=== PATIENT | female | born 1965 ===

== ENCOUNTER → 2020-08-05 12:07 | Outpatient (BNVA) | payer OTHER, SELFPAY | PROVIDERS: PCP Internal Medicine; Visit Provider Physician Assistant | DX: E66.01 Morbid (severe) obesity due to excess calories (principal); R06.02 Shortness of breath | CPT/HCPCS: 99212 ==

== ENCOUNTER → 2020-08-17 08:19 | Outpatient (BNVA) | payer OTHER, SELFPAY | PROVIDERS: PCP Internal Medicine; Visit Provider Physician Assistant ==

== ENCOUNTER → 2020-08-31 14:15 | Outpatient (BNVA) | payer OTHER, SELFPAY | PROVIDERS: PCP Internal Medicine; Visit Provider Surgery | DX: E66.01 Morbid (severe) obesity due to excess calories (principal) | CPT/HCPCS: 99212 ==

== ENCOUNTER → 2020-09-14 09:19 | Outpatient (BNVA) | payer OTHER, SELFPAY | PROVIDERS: PCP Internal Medicine; Visit Provider Dietitian, Registered ==

== ENCOUNTER → 2020-09-20 11:42 | Outpatient (BNVA) | payer OTHER, SELFPAY | PROVIDERS: Visit Provider Surgery | DX: E66.01 Morbid (severe) obesity due to excess calories (principal); Z68.42 Body mass index [BMI] 45.0-49.9, adult | CPT/HCPCS: 99212 ==

== ENCOUNTER → 2020-10-07 08:10 | Outpatient (BNVA) | payer OTHER, MEDICAID, SELFPAY | PROVIDERS: PCP Internal Medicine; Visit Provider Dietitian, Registered | DX: E66.01 Morbid (severe) obesity due to excess calories (principal) | CPT/HCPCS: 97803 ==

== ENCOUNTER → 2020-11-01 08:17 | Outpatient (BNVA) | payer OTHER, SELFPAY | PROVIDERS: PCP Internal Medicine; Visit Provider Dietitian, Registered ==

== ENCOUNTER → 2020-11-09 08:13 | Outpatient (BNVA) | payer OTHER, SELFPAY | PROVIDERS: PCP Internal Medicine; Visit Provider Dietitian, Registered ==

== ENCOUNTER 2020-11-12 08:05 | Outpatient (REF) | payer OTHER, SELFPAY ==
--- NOTE | ~2020-11-12 | XR_ITS ---
EXAMINATION: XR CHEST CLINICAL INFORMATION: Shortness of breath COMPARISON: Previous chest x-ray December 2018 TECHNIQUE: 2 views of the chest were obtained. FINDINGS: The cardiac and mediastinal contours are normal. The lungs are clear. There is no pleural effusion or pneumothorax. There are degenerative changes of the spine. XR/XR chest 2V IMPRESSION: No evidence for acute disease in the chest.
--- NOTE | 2020-11-12 08:15 | ECG_ITS ---
Test Reason : SOB Blood Pressure : / mmHG Vent. Rate : 071 BPM Atrial Rate : 071 BPM P-R Int : 136 ms QRS Dur : 076 ms QT Int : 414 ms P-R-T Axes : 029 -01 016 degrees QTc Int : 449 ms Normal sinus rhythm Normal ECG When compared with ECG of 16-JAN-2019 11:44, No significant change was found Referred By: Marisol Duron Electronically Signed By:JASWINDER LOPEZ MD
[2020-11-12 08:55] LABS: MANUAL DIFF FLAG NO
[2020-11-12 08:56] LABS: Basophils Percent Auto 0.4 % (0-2); Eosinophils Absolute Auto 0.2 X10*3/uL (0.0-0.4); Eosinophils Percent Auto 2.7 % (0-4); Hematocrit 41.1 % (37-47); Hemoglobin 13.7 g/dl (12.0-16.0); Imm Gran Abs Auto 0.03 X10*3/uL (0.00-0.03); Imm Gran Pct Auto 0.4 % (0.0-0.4); Lymphocytes Absolute Auto 2.5 X10*3/uL (1.2-4.9); Lymphocytes Percent Auto 33.7 % (20-40); Mean Corpuscular HGB Conc 33.3 g/dl (31.0-35.0); Mean Corpuscular Hemoglobin 26.5 pg (27.0-33.0); Mean Corpuscular Volume 79.5 fL (80-98); Mean Platelet Volume 11.6 fL (9.4-12.3); Monocytes Absolute Auto 0.5 X10*3/uL (0.1-1.2); Monocytes Percent Auto 6.5 % (2-11); Neutrophils Absolute Auto 4.1 X10*3/uL (2.0-8.3); Neutrophils Percent Auto 56.3 % (45-73); Platelet Count 174 X10*3/uL (160-400); Red Blood Count 5.17 X10*6/uL (4.20-5.50); White Blood Count 7.3 X10*3/uL (4.8-10.8)
[2020-11-12 09:22] LABS: Alanine Aminotransferase 39 U/L (0-31); Albumin Level 4.3 g/dL (3.5-5.0); Alkaline Phosphatase 77 U/L (39-117); Anion Gap 14 (12-20); Aspartate Amino Transferase 29 U/L (5-31); Bilirubin Total 0.5 mg/dL (0.0-1.0); Blood Urea Nitrogen 19 mg/dL (9-16); Calcium 9.5 mg/dL (8.4-10.2); Carbon Dioxide 26 mmol/L (22-29); Chloride 102 mmol/L (96-108); Cholesterol 167 mg/dL; Estimated Average Glucose 212 mg/dL; Estimated Glomerular Filt Rate > 60; Glucose Fasting 238 mg/dL (60-99); HDL Cholesterol 55 mg/dL; Iron 61 mcg/dL (30-160); LDL Cholesterol Calculated 87 mg/dl; Percent Iron Saturation 16 % (15-50); Potassium 4.1 mmol/L (3.3-5.1); Sodium 138 mmol/L (135-145); Total Iron Binding Capacity 381 mcg/dL (228-428); Total Protein 7.2 g/dL (6.5-8.0); Triglycerides 127 mg/dL; Unsaturated Iron Binding 320 ug/dL
[2020-11-12 09:44] LABS: Ferritin 20 ng/mL (10-250); TSH reflex Free T4 0.73 uIU/mL (0.32-4.0); Vitamin D 25-OH Total 29.1 ng/mL (>30)
[2020-11-12 10:37] LABS: Folate > 20.0 ng/mL (> or = 4.0); Vitamin B12 691 pg/mL (200-900)
[2020-11-15 14:52] LABS: Insulin Level Total 29.4 uIU/mL
[2020-11-15 16:51] LABS: Zinc 117 mcg/dL (60-130)
[2020-11-16 10:27] LABS: Calcium (PTHI) 9.4 mg/dL (8.6-10.4); PTHI 44 pg/mL (14-64)
[2020-11-17 14:22] LABS: Vitamin A 46 mcg/dL (38-98)
[2020-11-17 15:56] LABS: Vitamin B1 29 nmol/L (8-30)
== END 2020-11-12 08:06 | disposition home or self-care (01) ==
LOC: HO.LAB 08:05
PROVIDERS: PCP Internal Medicine; Visit Provider Physician Assistant
DX: R06.02 Shortness of breath (principal); E66.01 Morbid (severe) obesity due to excess calories
CPT/HCPCS: 36415; 71046; 80053; 80061; 82306; 82607; 82728; 82746; 83036; 83525; 83540; 83970; 84425; 84443; 84590; 84630; 85025; 86140; 93005

== ENCOUNTER → 2020-12-14 08:36 | Outpatient (BNVA) | payer OTHER, SELFPAY | PROVIDERS: PCP Internal Medicine; Visit Provider Dietitian, Registered ==

== ENCOUNTER → 2020-12-15 08:14 | Outpatient (BNVA) | payer OTHER, SELFPAY | PROVIDERS: PCP Internal Medicine; Visit Provider Dietitian, Registered | DX: E66.01 Morbid (severe) obesity due to excess calories (principal) | CPT/HCPCS: 97803 ==

== ENCOUNTER → 2021-03-04 09:41 | Outpatient (BNVA) | payer OTHER, SELFPAY | PROVIDERS: PCP Internal Medicine; Visit Provider Surgery ==

== ENCOUNTER → 2021-03-25 09:31 | Outpatient (BNVA) | payer OTHER, SELFPAY | PROVIDERS: PCP Internal Medicine; Referring Provider Internal Medicine; Visit Provider Surgery ==

== ENCOUNTER 2021-04-07 10:23 | Day surgery (SDC) | payer OTHER, SELFPAY ==
--- NOTE | 2021-04-06 11:58 | HO.ANESPROP2 ---
Documented by User: Magalis Hilton NP 04/06/21 11:59 HPI - Anesthesia Eval Consult details Narrative: 55yo F for Upper Endoscopy PMFSH Active Problems Active Problems: All Active Problems (Updated 09/20/20 @ 12:33 by Lisa Arce MD) BMI 45.0-49.9, adult (Acute) Adjustment disorder, unspecified (Acute) BMI greater than 40 (Acute) Morbid obesity (Acute) Past Medical History Medical History (Updated 04/07/21 @ 12:47 by Estefani Angela MD) Asthma BMI greater than 40 COVID-19 GERD (gastroesophageal reflux disease) Hypercholesterolemia Morbid obesity LIANA on CPAP Restless leg syndrome Type 2 diabetes mellitus Family History Family History Father No problems noted. Mother Diabetes mellitus Daughter No problems noted. Daughter No problems noted. Daughter ADHD Surgical History Surgical History H/O carpal tunnel repair H/O hand surgery H/O tubal ligation Hx of colonoscopy Social History Social History Alcohol intake: never Patient Tobacco Use Status: Former Tobacco user Quit Date: quit 35 years Use of substances other than those prescribed or required for medical reasons: No Are you DNR?: No Advance Directives: No Advance Directives Information Provided: Yes Patient : No Meds Allergies Allergy/AdvReac Type Severity Reaction Status Date / Time No Known Allergies Allergy Verified 03/25/21 09:51 Home Medications Medication Instructions Recorded Confirmed Last Taken Type ammonium lactate 12 % topical cream appl TOPICAL DAILY 08/05/20 03/25/21 Unknown History atorvastatin 20 mg tablet 20 mg PO BEDTIME 08/05/20 03/25/21 Unknown History blood sugar diagnostic #10 ea 08/05/20 03/25/21 Unknown History cholecalciferol (vitamin D3) 25 25 mcg PO DAILY 08/05/20 03/25/21 Unknown History mcg (1,000 unit) tablet docusate sodium 100 mg capsule 100 mg PO BID 08/05/20 03/25/21 Unknown History erythromycin 5 mg/gram (0.5 %) eye OPHTHALMIC (EYE) 08/05/20 03/25/21 Unknown History ointment flash glucose sensor #1 ea 08/05/20 03/25/21 Unknown History fluticasone 113 mcg-salmeterol 14 1 inh INHALATION BID 08/05/20 03/25/21 Unknown History mcg/actuation breath activated powdr ketotifen fumarate 0.025 % (0.035 1 drp OPHTHALMIC (EYE) Q12H 08/05/20 03/25/21 Unknown History %) eye drops levocetirizine 5 mg tablet 5 mg PO DAILY 08/05/20 03/25/21 Unknown History losartan 25 mg tablet 25 mg PO DAILY 08/05/20 03/25/21 Unknown History metformin 1,000 mg tablet 1,000 mg PO BID 08/05/20 03/25/21 Unknown History mometasone 50 mcg/actuation nasal 2 spray INTRANASAL DAILY PRN 08/05/20 03/25/21 Unknown History spray multivitamin 1 tab PO DAILY 08/05/20 03/25/21 Unknown History omeprazole 20 mg capsule,delayed 20 mg PO DAILY 08/05/20 03/25/21 Unknown History release pramipexole 0.125 mg tablet 0.125 mg PO DAILY 08/05/20 03/25/21 Unknown History sennosides 8.6 mg tablet 8.6 mg PO BEDTIME PRN 08/05/20 03/25/21 Unknown History dulaglutide 1.5 mg/0.5 mL 1.5 mg SUBCUT QWEEK 03/04/21 03/25/21 Unknown History subcutaneous pen injector (Trulicity) Exam Exam Date and Time: April 06, 2021 1158 Pertinent Lab Results Pertinent Lab Results: Laboratory Tests 11/12/20 11/12/20 08:20 08:20 WBC 7.3 Hgb 13.7 Hct 41.1 Plt Count 174 Sodium 138 Potassium 4.1 Chloride 102 Carbon Dioxide 26 BUN 19 H Creatinine 0.83 Narrative Narrative: EKG 10/2020 Vent. Rate : 071 BPM ? ? Atrial Rate : 071 BPM ?? P-R Int : 136 ms? QRS Dur : 076 ms ? ? QT Int : 414 ms ? ? ? P-R-T Axes : 029 -01 016 degrees ?? QTc Int : 449 ms ? Normal sinus rhythm Normal ECG When compared with ECG of 16-JAN-2019 11:44, No significant change was found Assessment and Plan Assessment Anesthesia Assessment: Chart Reviewed Documented by User: Estefani Angela MD 04/07/21 12:51 PMFSH Past Medical History Medical History (Updated 04/07/21 @ 12:47 by Estefani Angela MD) Asthma BMI greater than 40 COVID-19 GERD (gastroesophageal reflux disease) Hypercholesterolemia Morbid obesity LIANA on CPAP Restless leg syndrome Type 2 diabetes mellitus Family History Family History Father No problems noted. Mother Diabetes mellitus Daughter No problems noted. Daughter No problems noted. Daughter ADHD Family history of problems with anesthesia: No Surgical History Surgical History H/O carpal tunnel repair H/O hand surgery H/O tubal ligation Hx of colonoscopy History of Problems with Anesthesia: No Social History Social History Alcohol intake: never Patient Tobacco Use Status: Former Tobacco user Quit Date: quit 35 years Use of substances other than those prescribed or required for medical reasons: No Are you DNR?: No Advance Directives: No Advance Directives Information Provided: Yes Patient : No Meds Allergies Allergy/AdvReac Type Severity Reaction Status Date / Time No Known Allergies Allergy Verified 03/25/21 09:51 Home Medications Medication Instructions Recorded Confirmed Last Taken Type ammonium lactate 12 % topical cream appl TOPICAL DAILY 08/05/20 03/25/21 Unknown History atorvastatin 20 mg tablet 20 mg PO BEDTIME 08/05/20 03/25/21 Unknown History blood sugar diagnostic #10 ea 08/05/20 03/25/21 Unknown History cholecalciferol (vitamin D3) 25 25 mcg PO DAILY 08/05/20 03/25/21 Unknown History mcg (1,000 unit) tablet docusate sodium 100 mg capsule 100 mg PO BID 08/05/20 03/25/21 Unknown History erythromycin 5 mg/gram (0.5 %) eye OPHTHALMIC (EYE) 08/05/20 03/25/21 Unknown History ointment flash glucose sensor #1 ea 08/05/20 03/25/21 Unknown History fluticasone 113 mcg-salmeterol 14 1 inh INHALATION BID 08/05/20 03/25/21 Unknown History mcg/actuation breath activated powdr ketotifen fumarate 0.025 % (0.035 1 drp OPHTHALMIC (EYE) Q12H 08/05/20 03/25/21 Unknown History %) eye drops levocetirizine 5 mg tablet 5 mg PO DAILY 08/05/20 03/25/21 Unknown History losartan 25 mg tablet 25 mg PO DAILY 08/05/20 03/25/21 Unknown History metformin 1,000 mg tablet 1,000 mg PO BID 08/05/20 03/25/21 Unknown History mometasone 50 mcg/actuation nasal 2 spray INTRANASAL DAILY PRN 08/05/20 03/25/21 Unknown History spray multivitamin 1 tab PO DAILY 08/05/20 03/25/21 Unknown History omeprazole 20 mg capsule,delayed 20 mg PO DAILY 08/05/20 03/25/21 Unknown History release pramipexole 0.125 mg tablet 0.125 mg PO DAILY 08/05/20 03/25/21 Unknown History sennosides 8.6 mg tablet 8.6 mg PO BEDTIME PRN 08/05/20 03/25/21 Unknown History dulaglutide 1.5 mg/0.5 mL 1.5 mg SUBCUT QWEEK 03/04/21 03/25/21 Unknown History subcutaneous pen injector (Trulicity) Exam Height,Weight and Vital Signs: Height 5 ft 4 in Weight 122.47 kg Vital Signs Temp Pulse Resp BP Pulse Ox 04/07/21 11:03 97.3 F 84 18 137/79 97 Pertinent Lab Results Pertinent Lab Results: Laboratory Tests 11/12/20 11/12/20 08:20 08:20 WBC 7.3 Hgb 13.7 Hct 41.1 Plt Count 174 Sodium 138 Potassium 4.1 Chloride 102 Carbon Dioxide 26 BUN 19 H Creatinine 0.83 Laboratory Results - last 24 hr 04/07/21 04/07/21 10:35 10:40 POC Glucose 118 H COVID-19 (PATEL) Negative COVID-19 Clin Com See Note Narrative Narrative: EKG 10/2020 Vent. Rate : 071 BPM ? ? Atrial Rate : 071 BPM ?? P-R Int : 136 ms? QRS Dur : 076 ms ? ? QT Int : 414 ms ? ? ? P-R-T Axes : 029 -01 016 degrees ?? QTc Int : 449 ms ? Normal sinus rhythml Normal ECG When compared with ECG of 16-JAN-2019 11:44, No significant change was found Airway Mallampati Class: I TM Dist: >3cm Neck ROM: Full Heart: RRR Lungs: CTAB Assessment and Plan Assessment Anesthesia Assessment: Anesthesia Plan Discussed Final Anesthetic Review Family History of Problems with Anesthesia: No History of Problems with Anesthesia: No NPO: Yes ASA Class: III Final Preanesthetic Review: No Changes in Pt Med Stat, Meds/Allgs Chart Reviewed, Consent Obtained/Reviewed and Anes Risks/Benef Reviewed Patient Risk: Intermediate Procedure Risk: Low Assessment/Block/Sedation in SS: Assess/Block/Sedation-SS Anesthetic Plan Anesthetic Plan: MAC: Disposition: Standard PACU
--- NOTE | 2021-04-07 00:15 | MHC.SHP ---
Pre-Procedural Eval Section A Date of Service: 04/07/21 The patient is an INPATIENT: No The History & Physical has been completed within 30 days and I have reviewed it.: No Section B Chief Complaint: GERD Relevant Family History (Specify if Yes): No Relevant Social History: None Present Medications: None Medical History: No relevant PMH History of Previous Operations: No relevant previous surgery Allergies: Allergies Allergy/AdvReac Type Severity Reaction Status Date / Time No Known Allergies Allergy Verified 03/25/21 09:51 Review of Systems Sugical H&P ROS: Negative: Constitution, Cardiovascular, Respiratory, Neurological, Psychiatric, Hem-Onc, Allergic/Immunologic, Gastrointestinal, Genitourinary, Musculoskeletal, Integumentary, Endocrine and Eyes/Ears/Nose/Throat Exam Surgical H&P Exam: Normal: HEENT, Normal: Heart, Normal: Lungs, Normal: Extremities, Normal: Abdomen, Normal: Skin and Normal: Neurological Plan Diagnosis/Plan: Unchanged (Plan for endoscopy to rule out H pylori. Patient cannot tolerate 2 week discontinuation of PPI treatment. Risks and complications were discussed) I have reviewed the history and physical and performed a pertinent physical examination on my patient. No changes have occurred unless specified.
[2021-04-07 11:01] LABS: COVID-19 Test Negative (Negative)
[2021-04-07 11:03] VITALS: BP 137/79; PULSE 84; RESP 18; TEMP 36.3; O2SAT 97; BMI 46.3
[2021-04-07] MEDS: Lactated Ringers 1,000 ML 100 ML IVCONT (11:12)
[2021-04-07 12:34] LABS: Glucose, Whole Blood 118 mg/dL (60-115)
[2021-04-07 14:10] VITALS: BP 117/70; PULSE 90; RESP 14; TEMP 36.1; O2SAT 93
[2021-04-07 14:26] VITALS: BP 122/72; PULSE 85; RESP 16; O2SAT 93
[2021-04-07 14:35] VITALS: BP 115/72; PULSE 77; RESP 16; TEMP 36.1; O2SAT 97
--- NOTE | 2021-04-07 18:41 | PM.OP ---
Brief Operative Note Date of Service: 04/07/21 Pre-op diagnosis: GERD Post-op diagnosis: same Procedure: PROCEDURE DATE: 11/11/2020 PREOPERATIVE DIAGNOSIS: GERD and obesity POSTOPERATIVE DIAGNOSIS: ?Same as above. 1) small hiatal hernia, 2) esophagitis II PROCEDURE: [id number]-vavqbq-ukhoitpnweqn with biopsies Surgeon: ?Pal Galindo M.D.. Ph.D. Chocolate Finisher Operator: None ? Anesthesia: IV sedation Estimated blood loss: ?Minimal FINDINGS AND PROCEDURE: ? OPERATIVE INDICATIONS: ?The patient is a 55 year old female known to me who is evaluated for morbid obesity and bariatric surgery. She had severe GERD and was not able to discontinue the Omeprazole for 2 weeks to perform the H. pylori breath test. She presents for an endoscopy and a biopsy. Risks and complications of the surgery were discussed with the patient in advance particularly the possibility of perforation or bleeding that may require surgical intervention. The patient understood the risks and was in agreement with the plan. ? PROCEDURE: After informed consent was obtained by the patient, the patient was ?transferred to the Operating Room and was placed in the supine position.? After successful induction of IV sedation, a mouth block was inserted and the patient was placed in the left lateral decubitus position. An upper endoscopy was performed next, the oropharynx and esophagus appeared within the normal limits. There was a small hiatal hernia. The z-line was irregular with tongus of gastric mucosa protruding into the esophagus in less than 50% circumference. Two biopsies were obtained from the distal esohagus 2-3 cm proximal to the GE junction and two additional biopsies from the GE junction. The stomach was entered and it appeared to be of normal size. There was no gastritis at distal antrum. There was no stricture or ulcer. Biopsies were obtained from the proximal stomach as well as the distal antrum. No significant bleeding was noted from any of the biopsy sites. The scope was then advanced into the duodenum which appeared to be normal as well. At that point the duodenum ?and the stomach were decompressed and the scope was withdrawn from the patient's mouth. The patient extubated and was transferred in stable condition to the Recovery Room for further care. I was present and performed all steps of the procedure. There were no residents to assist with this case. Pal Galindo M.D., Ph.D. Surgeon: José Luis Galindo MD Anesthesia: MAC Was an Chocolate Finisher Operator used for this Procedure?: No Estimated blood loss (mL): 0 Urine output (mL): 0 (No Morin to record) Pathology: other (1) GEJ x2, 2) distal esophagus x2, 3) proximal stomach x1, 4) antrum x1) Condition: stable Disposition: PACU
== END 2021-04-07 15:29 | disposition home or self-care (01) ==
PROVIDERS: PCP Internal Medicine; Visit Provider Surgery
PROC: 0DJ08ZZ Inspection of Upper Intestinal Tract, Via Natural or Artificial Opening Endoscopic (ICD-10-PCS; CPT 43235; principal; 2021-04-07 11:40)
DX: K21.9 Gastro-esophageal reflux disease without esophagitis (principal); E66.01 Morbid (severe) obesity due to excess calories; Z68.42 Body mass index [BMI] 45.0-49.9, adult; K20.80 Other esophagitis without bleeding; K44.9 Diaphragmatic hernia without obstruction or gangrene; G47.33 Obstructive sleep apnea (adult) (pediatric); J45.909 Unspecified asthma, uncomplicated; G25.81 Restless legs syndrome; E78.00 Pure hypercholesterolemia, unspecified; E11.9 Type 2 diabetes mellitus without complications; Z79.84 Long term (current) use of oral hypoglycemic drugs; Z79.51 Long term (current) use of inhaled steroids; Z79.899 Other long term (current) drug therapy; Z20.822 Contact with and (suspected) exposure to COVID-19; Z98.51 Tubal ligation status
CPT/HCPCS: 43239; 36415; 82947; 87635; 88305; 88341; 88342; J2250

== ENCOUNTER → 2021-04-15 09:02 | Outpatient (BNVA) | payer OTHER, SELFPAY | PROVIDERS: PCP Internal Medicine; Visit Provider Physician Assistant Surgical ==

== ENCOUNTER 2021-05-04 09:36 | Outpatient (REF) | payer OTHER, SELFPAY | END 2021-05-04 09:37 | disposition home or self-care (01) | LOC: HO.US 09:36 | PROVIDERS: PCP Internal Medicine; Referring Provider Internal Medicine; Visit Provider Surgery | DX: E66.01 Morbid (severe) obesity due to excess calories (principal); E11.9 Type 2 diabetes mellitus without complications; I10 Essential (primary) hypertension; G47.30 Sleep apnea, unspecified; I95.9 Hypotension, unspecified; J45.909 Unspecified asthma, uncomplicated; Z68.42 Body mass index [BMI] 45.0-49.9, adult | CPT/HCPCS: 99212 ==

== ENCOUNTER → 2021-05-12 08:12 | Outpatient (BNVA) | payer OTHER, SELFPAY | PROVIDERS: PCP Internal Medicine; Visit Provider Dietitian, Registered | DX: E66.01 Morbid (severe) obesity due to excess calories (principal) | CPT/HCPCS: 97803 ==

== ENCOUNTER → 2021-06-01 08:04 | Outpatient (BNVA) | payer OTHER, SELFPAY | PROVIDERS: PCP Internal Medicine; Visit Provider Surgery ==

== ENCOUNTER → 2021-06-13 08:06 | Outpatient (BNVA) | payer OTHER, SELFPAY | PROVIDERS: PCP Internal Medicine; Referring Provider Surgery; Visit Provider Dietitian, Registered ==

== ENCOUNTER 2021-06-20 07:55 | Outpatient (REF) | payer OTHER, SELFPAY ==
--- NOTE | ~2021-06-20 | US_ITS ---
EXAMINATION: US COMPLETE ABDOMEN WITH LIVER ELASTOGRAPHY CLINICAL INFORMATION: Bariatric service evaluation; E66.01 COMPARISON: Outside renal ultrasound 05/13/2018 ([facility]). TECHNIQUE: Real-time imaging of the abdominal viscera. Noninvasive ultrasound liver fibrosis assessment is performed using Richard ElastPQ point quantification shear wave elastography (pSWE) with a C5-2 MHz transducer. Multiple elastography samples are obtained. FINDINGS: PANCREAS: The visualized pancreas is normal in size and contour and echogenicity. No pancreatic ductal distention. The distal body and tail are obscured by bowel gas and not completely imaged. ABDOMINAL AORTA: Mid abdominal aorta are partly obscured by bowel gas and not imaged. Remainder of the abdominal aorta appears unremarkable, normal caliber. INFERIOR VENA CAVA: Visualized portions are normal. LIVER: Liver is mildly enlarged. The liver surface is smooth. The hepatic parenchymal echogenicity is within limits of normal. There is no focal hepatic parenchymal lesion or intrahepatic ductal dilatation. The right lobe measures 20.6 cm in length. The left lobe measures 13.9 cm in length. Portal flow is towards the liver (hepatopetal). Shear wave liver elastography median stiffness is 1.52 m/s (reference: normal median stiffness is 1.3 m/s or less). IQR/median stiffness to assess sampling precision is 0.22 (reference: good quality data set is IQR/median stiffness of 0.15 or less). GALLBLADDER: Normal. The gallbladder is physiologically distended without evidence of stones, sludge, polyps, wall thickening or pericholecystic fluid. COMMON BILE DUCT: Normal in caliber measuring 0.3 cm in diameter. RIGHT KIDNEY: Normal. No hydronephrosis. No renal calculi or focal parenchymal lesions. The kidney measures 12.6 cm in maximum dimension. LEFT KIDNEY: Normal. No hydronephrosis. No renal calculi or focal parenchymal lesions. The kidney measures 13.4 cm in maximum dimension. SPLEEN: Normal. The spleen measures 11.5 cm in maximum dimension. FREE FLUID: None. US/US abdomen comp w elastography IMPRESSION: 1. Mild hepatomegaly. Liver surface is smooth. No focal hepatic parenchymal lesion. 2. Liver elastography: Although measurements appear to rule out compensated advanced chronic liver disease, there is statistical variability of the sampling which decreases accuracy. 3. No cholelithiasis or biliary ductal dilatation. 4. Bowel gas obscures portions of pancreas and mid abdominal aorta. REFERENCE: Society of Radiologists in Ultrasound Liver Stiffness Thresholds (2020): LIVER STIFFNESS THRESHOLDS: *Liver Stiffness equal or less than 1.3 m/s: High probability of being normal. *Liver Stiffness less than 1.7 m/s: In the absence of other known clinical signs, rules out compensated advanced chronic liver disease. *Liver Stiffness 1.7-2.1 m/s: Suggestive of compensated advanced chronic liver disease but need further test for confirmation. *Liver Stiffness over 2.1 m/s: Rules in compensated advanced chronic liver disease. *Liver Stiffness over 2.4 m/s: Suggestive of clinically significant portal hypertension. QUALITY OF DATA SET: *IQR/Median value equal or less than 0.15 implies a quality data set. *IQR/Median value over 0.15 implies a poor quality data set. SIGNIFICANT CHANGE FROM PRIOR EXAM: Significant change if liver stiffness measurement is 10% or greater from prior exam. OTHER CONSIDERATIONS: The stage of liver fibrosis may be overestimated in the setting of acute hepatitis, liver inflammation, elevated liver function tests, hepatic vascular congestion, obstructive cholestasis, non-fasting state, and infiltrative diseases such as amyloidosis and lymphoma. In some patients with NAFLD, the liver stiffness thresholds for compensated advanced chronic liver disease may be lower. In causes other than viral hepatitis and NAFLD, liver stiffness thresholds are not well established.
--- NOTE | ~2021-06-20 | FL_ITS ---
EXAMINATION: XR FLUOROSCOPY UPPER GI WITH AIR CLINICAL INFORMATION: Morbid obesity. COMPARISON: None TECHNIQUE: Air-contrast upper GI examination. FINDINGS: There is normal apposition of the vocal cords while saying E. There is normal elevation of the soft palate while saying candy. Patient swallowed thin and thick barium without difficulty. Half-inch diameter barium tablet passed without difficulty There is no evidence of nasopharyngeal reflux or tracheal aspiration. No Zenker's diverticulum or cricopharyngeal hypertrophy identified. There is normal esophageal motility. No persistent stricture or mucosal abnormality was identified. No gastroesophageal reflux was seen including with water siphon test. The stomach demonstrates normal distensibility without abnormal mass or ulceration. There was no delay in gastric emptying. The duodenal bulb and sweep appeared unremarkable. FLUOROSCOPY TIME: 2.0 minutes DOSE AREA PRODUCT: 22.773 Gy-cm2 (bain-centimeter squared) FL/FL upper GI w air IMPRESSION: Normal air-contrast upper GI examination.
--- NOTE | 2021-06-20 10:17 | CA_ITS ---
Transthoracic Echocardiogram Patient (Last, First, Middle): Olivia Posey, Gender: Female Date of : 1965 Age: 55 Procedure Date: 06/20/2021 Procedure Type: Transthoracic Echocardiogram Location: OP Height: 162.56 cm Weight: 123.38 kg BSA: 2.23 m2 Heart Rate: bpm BP: 126 / 80 mmHg Infection Control Rn: [email or web address] Referring MD: José Luis Galindo MD Symptoms: E11.9 - Type 2 diabetes mellitus without complications Study Quality: Fair ECG Rhythm: Sinus Conclusions: - The left ventricular systolic function is normal. The calculated ejection fraction is 64% by biplane method. - No obvious valvular pathology seen on this study. Findings Left Ventricle Normal left ventricular cavity size. There is normal left ventricular wall thickness. The left ventricular systolic function is normal. The calculated ejection fraction is 64% by biplane method. There is no evidence of regional wall motion abnormalities. Diastolic function is normal for age. Right Ventricle Normal right ventricular cavity size and systolic function. Atria Both atria are normal in size. Aortic Valve There is a normal trileaflet aortic valve. There is no aortic valve stenosis. The peak aortic gradient is 6 mmHg.There is no aortic valve regurgitation. Mitral Valve There is mild mitral annular calcification. There is trace mitral valve regurgitation. There is no mitral valve stenosis. Pulmonic Valve The pulmonic valve was not well visualized. Tricuspid Valve Normal tricuspid valve structure. There is trace tricuspid valve regurgitation. The pulmonary artery systolic pressure is normal. Great Vessels The aortic annulus, sinuses of valsalva, asc aorta, and aortic arch are normal in size. Venous The inferior vena cava is normal in size and collapses greater than 50% with inspiration. Pericardium/Pleural There is no evidence of pericardial effusion. Prior Study Comparison No prior study available for comparison. Recommendations, Care & Conclusions No obvious valvular pathology seen on this study. Measurements 2D Linear Measurements IVSd: 0.96 0.6-0.9/0.6-1.0 cm LVIDd: 4.27 3.9-5.3/4.2-5.9 cm LVIDd Index: 1.91 2.4-3.2/2.2-3.1 cm/m2 LVIDs: 2.67 2.0-3.6 cm LVPWd: 1.02 0.7-1.1 cm Ao Root: 3.00 2.1-3.5 cm LA Diam: 3.40 2.7-3.8/3.0-4.0 cm LAIDs Index: 1.52 1.5-2.3 cm/m2 LV Mass: 172.94 67-162/88-224 g LV Mass Index: 77.55 43-95/49-115 g/m2 LVOT Diam: 2.00 3.0+(-)1.3 cm 2D Systolic Function EF 4C: 62.70 >55% EF 2C: 65.70 >55% EF BiP: 63.90 >55% Mitral Valve MV Pk E: 0.84 MV PK A: 0.64 MV Decel Time: 183.00 E/A: 1.30 E'Lateral: 9.03 E'Medial: 6.85 E/E' Med: 12.30 E/E' Lat: 9.30 PHT: 54.00 MVA PHT: 4.07 Decel Bland: 4.61 Aortic Valve AoV Pk Darren: 1.21 AoV Pk Grad: 6.00 LVOT LVOT Pk Darren: 1.10 LVOT Mn Darren: 0.77 LVOT VTI: 0.26 LVOT Pk Grad: 5.00 LVOT Mn Grad: 3.00 LVOT Diam: 2.00 LVOT Area: 3.14 Diastolic Function MV Pk E: 0.84 MV Pk A: 0.64 E/A: 1.30 E'Medial: 6.85 E/E' Med: 12.30 E' Laterial: 9.03 E/E' Lat: 9.30 Right Ventricle TAPSE (mm): 1.98 TVS' Darren: 13.40 Tricuspid Valve TR Pk Darren: 2.23 TR Pk Grad: 20.00 RA Press: 3.00 RVSP: 23.00 Great Vessels Aorta Ao Root-2D: 3.00 2.0-3.7 cm Ao Asc: 3.10 2.1-3.4 cm Updated in Other Vendor System with Status of Final Albaro Robles MD electronically signed on 06/20/2021 12:03:00 PM with status of Final
== END 2021-06-20 07:56 | disposition home or self-care (01) ==
LOC: HO.US 07:55
PROVIDERS: Visit Provider Surgery
DX: Z01.818 Encounter for other preprocedural examination (principal); E11.9 Type 2 diabetes mellitus without complications; E66.01 Morbid (severe) obesity due to excess calories; I10 Essential (primary) hypertension; G47.30 Sleep apnea, unspecified; Z99.89 Dependence on other enabling machines and devices
CPT/HCPCS: 74246; 76705; 76981; 93306

== ENCOUNTER → 2021-07-04 07:59 | Outpatient (BNVA) | payer OTHER, SELFPAY | PROVIDERS: PCP Internal Medicine; Visit Provider Dietitian, Registered ==

== ENCOUNTER → 2021-07-06 08:05 | Outpatient (BNVA) | payer OTHER, SELFPAY | PROVIDERS: PCP Internal Medicine; Visit Provider Dietitian, Registered | DX: E66.01 Morbid (severe) obesity due to excess calories (principal); Z68.45 Body mass index [BMI] 70 or greater, adult | CPT/HCPCS: 97803 ==

== ENCOUNTER → 2021-07-08 08:04 | Outpatient (BNVA) | payer OTHER, SELFPAY | PROVIDERS: PCP Internal Medicine; Visit Provider Surgery ==

== ENCOUNTER → 2021-07-19 09:26 | Outpatient (REF) | payer OTHER, SELFPAY ==
--- NOTE | 2021-07-19 09:31 | CA_ITS ---
Acquisition Time: 2021-07-19 09:36:41 Total Exercise Time: 00:04:23 Test Indications: CP, SOB, PREOP Medications: SEE CHART Protocol: NANNETTE Max HR: 157 BPM 95% of Pred: 165 BPM Max BP: 148/080 mmHG Max Work Load: 6.2 METS Exercise stress test with exercise 4 min 23 sec of Nannette protocol, achieving 86% MPHR and 6.2 METs, with moderate shortness of breath, no chest discomfort, with isolated PVC, without EKG changes meeting criteria for ischemia at acheived workload. In recovery her breathing normalized. Test reviewed with Dr Oakley. Referred By: José Luis Galindo Overread By: RULA RIVERA
== END ==
LOC: HO.CARD 09:26
PROVIDERS: Visit Provider Surgery
DX: I10 Essential (primary) hypertension (principal); E66.01 Morbid (severe) obesity due to excess calories; G47.30 Sleep apnea, unspecified; E11.9 Type 2 diabetes mellitus without complications
CPT/HCPCS: 93017

== ENCOUNTER → 2021-08-04 07:59 | Outpatient (BNVA) | payer OTHER, SELFPAY | PROVIDERS: PCP Internal Medicine; Referring Provider Surgery; Visit Provider Dietitian, Registered ==

== ENCOUNTER → 2021-08-05 08:12 | Outpatient (BNVA) | payer OTHER, SELFPAY | PROVIDERS: PCP Internal Medicine; Visit Provider Surgery ==

== ENCOUNTER → 2021-08-12 08:22 | Outpatient (BNVA) | payer OTHER, SELFPAY | PROVIDERS: PCP Internal Medicine; Visit Provider Dietitian, Registered ==

== ENCOUNTER → 2021-08-18 08:16 | Outpatient (BNVA) | payer OTHER, SELFPAY | PROVIDERS: PCP Internal Medicine; Visit Provider Dietitian, Registered | DX: E66.01 Morbid (severe) obesity due to excess calories (principal); E11.9 Type 2 diabetes mellitus without complications; Z71.3 Dietary counseling and surveillance | CPT/HCPCS: 97803 ==

== ENCOUNTER → 2021-09-30 08:13 | Outpatient (BNVA) | payer OTHER, SELFPAY | PROVIDERS: PCP Internal Medicine; Visit Provider Surgery ==

== ENCOUNTER 2022-06-15 09:30 | Outpatient (REF) | payer OTHER, SELFPAY ==
[2022-06-15 09:54] LABS: MANUAL DIFF FLAG NO
[2022-06-15 10:31] LABS: Basophils Percent Auto 0.5 % (0-2); Eosinophils Absolute Auto 0.1 X10*3/uL (0.0-0.4); Hematocrit 45.2 % (37.0-47.0); Hemoglobin 14.9 g/dl (12.0-16.0); Imm Gran Abs Auto 0.01 X10*3/uL (0.00-0.03); Imm Gran Pct Auto 0.2 % (0.0-0.4); Lymphocytes Absolute Auto 2.2 X10*3/uL (1.2-4.9); Lymphocytes Percent Auto 36.2 % (20-40); Mean Corpuscular Hemoglobin 26.1 pg (27.0-33.0); Mean Corpuscular Volume 79.3 fL (80.0-98.0); Monocytes Absolute Auto 0.5 X10*3/uL (0.1-1.2); Monocytes Percent Auto 7.7 % (2-11); Neutrophils Absolute Auto 3.3 x10*3/uL (2.0-8.3); Neutrophils Percent Auto 54.4 % (45-73); Platelet Count 206 X10*3/uL (160-400); Red Cell Distribution Width 13.9 % (11.0-16.0)
[2022-06-15 10:41] LABS: INTERNATIONAL NORM RATIO 1.1 (0.9-1.1); Prothrombin Time 12.2 SEC (10.0-13.1)
[2022-06-15 10:43] LABS: Estimated Average Glucose 160 mg/dL; Hemoglobin A1c % 7.2 %; Partial Thromboplastin Time 29.3 SEC (26.0-36.4)
[2022-06-15 11:15] LABS: Alanine Aminotransferase 22 U/L (0-31); Albumin Level 4.5 g/dL (3.5-5.0); Alkaline Phosphatase 52 U/L (39-117); Anion Gap 14 (12-20); Aspartate Amino Transferase 23 U/L (5-31); Blood Urea Nitrogen 19 mg/dL (9-16); C Reactive Protein 0.43 mg/dL (< or = 0.50); Calcium 9.9 mg/dL (8.4-10.2); Carbon Dioxide 26 mmol/L (22-29); Chloride 104 mmol/L (96-108); Cholesterol 142 mg/dL; Estimated Glomerular Filt Rate > 60; Glucose Random 111 mg/dL (60-115); HDL Cholesterol 56 mg/dL; LDL Cholesterol Calculated 66 mg/dl; Potassium 4.9 mmol/L (3.3-5.1); Sodium 139 mmol/L (135-145); Total Protein 7.4 g/dL (6.5-8.0); Triglycerides 101 mg/dL
[2022-06-15 11:49] LABS: Bilirubin Total 0.6 mg/dL (0.0-1.0); Insulin 7 uU/mL (2-29); TSH reflex Free T4 1.08 uIU/mL (0.32-4.0)
== END 2022-06-15 09:31 | disposition home or self-care (01) ==
LOC: HO.LAB 09:30
PROVIDERS: PCP Internal Medicine Gastroenterology; Visit Provider Surgery
DX: E66.01 Morbid (severe) obesity due to excess calories (principal)
CPT/HCPCS: 36415; 80053; 80061; 83036; 83525; 84443; 85025; 85610; 85730; 86140

== ENCOUNTER 2022-06-20 09:36 | Inpatient (IN) | payer OTHER, SELFPAY ==
[2022-06-07 10:44] VITALS: BMI 42.9
--- NOTE | 2022-06-08 10:55 | ECG_ITS ---
Test Reason : PREOP Blood Pressure : / mmHG Vent. Rate : 068 BPM Atrial Rate : 068 BPM P-R Int : 136 ms QRS Dur : 074 ms QT Int : 390 ms P-R-T Axes : 027 -07 020 degrees QTc Int : 414 ms Normal sinus rhythm Normal ECG When compared with ECG of 12-NOV-2020 08:31, No significant change was found Referred By: Flaca Bates Electronically Signed By:CATHY CALLOWAY
--- NOTE | 2022-06-16 10:21 | P.CONAN_ITS ---
Documented by User: Magalis Hilton NP 06/16/22 10:24 [facility] Active Problems Active Problems: All Active Problems (Updated 05/31/22 @ 12:10 by José Luis Galindo MD) Adjustment disorder, unspecified (Acute) BMI 45.0-49.9, adult (Acute) Morbid obesity with BMI of 45.0-49.9, adult (Acute) Pre-op evaluation (Acute) GERD (gastroesophageal reflux disease) (Acute) Restless leg syndrome (Acute) Asthma (Acute) Hypotension (Acute) Sleep apnea with use of continuous positive airway pressure (CPAP) (Acute) Hypertension (Acute) Non-insulin treated type 2 diabetes mellitus (Acute) BMI greater than 40 (Acute) Morbid obesity (Acute) Past Medical History Medical History (Updated 05/31/22 @ 12:10 by José Luis Galindo MD) Asthma BMI greater than 40 COVID-19 GERD (gastroesophageal reflux disease) Hypercholesterolemia Hypertension Hypotension Morbid obesity Non-insulin treated type 2 diabetes mellitus LIANA on CPAP Restless leg syndrome Sleep apnea with use of continuous positive airway pressure (CPAP) Type 2 diabetes mellitus Family History Family History Father No problems noted. Mother Diabetes mellitus Daughter No problems noted. Daughter No problems noted. Daughter ADHD Family history of problems with anesthesia: No Surgical History Surgical History (Updated 06/07/22 @ 10:49 by Lakshmi Dumont RN) H/O carpal tunnel repair H/O hand surgery H/O tubal ligation Hx of colonoscopy History of Problems with Anesthesia: No Social History Social History (Updated 06/07/22 @ 10:44 by Lakshmi Dumont RN) Household Members: Family Housing: House Are you a primary hospice spiritual care coordinator to a significant other at home: No Do you presently have visiting nurse or other home services: No Alcohol intake: never Patient Tobacco Use Status: Former Tobacco user Quit Date: 1986 Have you been hit, kicked, punched, or otherwise hurt by someone within the past year? If so, by whom?: No Are you DNR?: No Advance Directives: No Advance Directives Information Provided: Yes Advance Directives on File: No Recently lost weight without trying: No Nutrition Risks: No Nutritional Risk Meds Allergies Allergy/AdvReac Type Severity Reaction Status Date / Time No Known Allergies Allergy Verified 06/07/22 10:49 Home Medications Medication Instructions Recorded Confirmed Last Taken Type ammonium lactate 12 % topical cream appl topical DAILY 08/05/20 05/31/22 Unknown History atorvastatin 20 mg tablet 20 mg PO BEDTIME 08/05/20 06/07/22 Unknown History blood sugar diagnostic #10 ea 08/05/20 05/31/22 Unknown History cholecalciferol (vitamin D3) 25 25 mcg PO DAILY 08/05/20 06/07/22 Unknown History mcg (1,000 unit) tablet docusate sodium 100 mg capsule 100 mg PO BID 08/05/20 05/31/22 Unknown History erythromycin 5 mg/gram (0.5 %) eye ophthalmic (eye) 08/05/20 05/31/22 Unknown History ointment flash glucose sensor #1 ea 08/05/20 05/31/22 Unknown History fluticasone 113 mcg-salmeterol 14 1 inh inhalation BID 08/05/20 06/07/22 Unknown History mcg/actuation breath activated powdr ketotifen fumarate 0.025 % (0.035 1 drp ophthalmic (eye) Q12H 08/05/20 05/31/22 Unknown History %) eye drops levocetirizine 5 mg tablet 5 mg PO DAILY 08/05/20 05/31/22 Unknown History losartan 25 mg tablet 25 mg PO DAILY 08/05/20 06/07/22 06/20/22 History metformin 1,000 mg tablet 1,000 mg PO BID 08/05/20 06/07/22 Unknown History mometasone 50 mcg/actuation nasal 2 spray intranasal DAILY PRN 08/05/20 05/31/22 Unknown History spray allergies multivitamin 1 tab PO DAILY 08/05/20 05/31/22 Unknown History omeprazole 20 mg capsule,delayed 20 mg PO DAILY 08/05/20 06/07/22 Unknown History release sennosides 8.6 mg tablet 8.6 mg PO BEDTIME PRN constipation 08/05/20 06/07/22 Unknown History dulaglutide 1.5 mg/0.5 mL 3 mg subcut QWEEK 03/04/21 06/07/22 Unknown History subcutaneous pen injector (Trulicity) empagliflozin 10 mg tablet 10 mg PO DAILY 05/31/22 06/07/22 Unknown History (Jardiance) pramipexole 0.25 mg tablet 0.25 mg PO BEDTIME 05/31/22 06/07/22 Unknown History (Mirapex) cyclosporine 0.05 % eye drops in a 1 drp ophthalmic (eye) Q12H 06/07/22 06/07/22 Unknown History dropperette (Restasis) Exam Exam Date and Time: June 16, 2022 1021 Height,Weight and Vital Signs: Height 5 ft 4 in Weight 113.398 kg Pertinent Lab Results Pertinent Lab Results: Laboratory Tests 06/15/22 09:46 Blood Type B Negative Antibody Screen NEGATIVE Laboratory Tests 06/15/22 06/15/22 09:53 09:53 WBC 6.0 Hgb 14.9 Hct 45.2 Plt Count 206 Sodium 139 Potassium 4.9 Chloride 104 Carbon Dioxide 26 BUN 19 H Creatinine 0.86 Narrative Narrative: EKG 05/2022 Vent. Rate : 068 BPM ? ? Atrial Rate : 068 BPM ?? P-R Int : 136 ms? QRS Dur : 074 ms ? ? QT Int : 390 ms ? ? ? P-R-T Axes : 027 -07 020 degrees ?? QTc Int : 414 ms ? Normal sinus rhythm Normal ECG When compared with ECG of 12-NOV-2020 08:31, No significant change was found ECHO 2020 Conclusions: - The left ventricular systolic function is normal.? The ? calculated ejection fraction is 64% by biplane method. ? - No obvious valvular pathology seen on this study.?? Exercise Stress 2021 Protocol: DERREK ? Max HR: 157 BPM? 95% of? Pred: 165 BPM Max BP: 148/080 mmHG Max Work Load: 6.2 METS ? Exercise stress test with exercise 4 min 23 sec of Derrek protocol,? achieving ?86% MPHR and 6.2 METs,? with moderate shortness of breath, no chest discomfort, ?with isolated PVC, without EKG changes meeting criteria for ischemia at ?acheived workload. In recovery her breathing normalized. Test reviewed with Dr Larsen. Assessment and Plan Assessment Anesthesia Assessment: Chart Reviewed Final Anesthetic Review Family History of Problems with Anesthesia: No History of Problems with Anesthesia: No Documented by User: Estefani Angela MD 06/20/22 10:24 HPI - Anesthesia Eval Consult details Narrative: 56 yo male patient for EGD, Sleeve gastrectomy, possible diaphragmatic hernia repair, possible ventral hernia repair, possible open PMFSH Past Medical History Medical History (Updated 05/31/22 @ 12:10 by José Luis Galindo MD) Asthma BMI greater than 40 COVID-19 GERD (gastroesophageal reflux disease) Hypercholesterolemia Hypertension Hypotension Morbid obesity Non-insulin treated type 2 diabetes mellitus LIANA on CPAP Restless leg syndrome Sleep apnea with use of continuous positive airway pressure (CPAP) Type 2 diabetes mellitus Family History Family History Father No problems noted. Mother Diabetes mellitus Daughter No problems noted. Daughter No problems noted. Daughter ADHD Surgical History Surgical History (Updated 06/07/22 @ 10:49 by Lakshmi Dumont RN) H/O carpal tunnel repair H/O hand surgery H/O tubal ligation Hx of colonoscopy Social History Social History (Updated 06/07/22 @ 10:44 by Lakshmi Dumont RN) Household Members: Family Housing: House Are you a primary hospice spiritual care coordinator to a significant other at home: No Do you presently have visiting nurse or other home services: No Alcohol intake: never Patient Tobacco Use Status: Former Tobacco user Quit Date: 1986 Have you been hit, kicked, punched, or otherwise hurt by someone within the past year? If so, by whom?: No Are you DNR?: No Advance Directives: No Advance Directives Information Provided: Yes Advance Directives on File: No Recently lost weight without trying: No Nutrition Risks: No Nutritional Risk Meds Allergies Allergy/AdvReac Type Severity Reaction Status Date / Time No Known Allergies Allergy Verified 06/07/22 10:49 Home Medications Medication Instructions Recorded Confirmed Last Taken Type ammonium lactate 12 % topical cream appl topical DAILY 08/05/20 05/31/22 Unknown History atorvastatin 20 mg tablet 20 mg PO BEDTIME 08/05/20 06/07/22 Unknown History blood sugar diagnostic #10 ea 08/05/20 05/31/22 Unknown History cholecalciferol (vitamin D3) 25 25 mcg PO DAILY 08/05/20 06/07/22 Unknown History mcg (1,000 unit) tablet docusate sodium 100 mg capsule 100 mg PO BID 08/05/20 05/31/22 Unknown History erythromycin 5 mg/gram (0.5 %) eye ophthalmic (eye) 08/05/20 05/31/22 Unknown History ointment flash glucose sensor #1 ea 08/05/20 05/31/22 Unknown History fluticasone 113 mcg-salmeterol 14 1 inh inhalation BID 08/05/20 06/07/22 Unknown History mcg/actuation breath activated powdr ketotifen fumarate 0.025 % (0.035 1 drp ophthalmic (eye) Q12H 08/05/20 05/31/22 Unknown History %) eye drops levocetirizine 5 mg tablet 5 mg PO DAILY 08/05/20 05/31/22 Unknown History losartan 25 mg tablet 25 mg PO DAILY 08/05/20 06/07/22 06/20/22 History metformin 1,000 mg tablet 1,000 mg PO BID 08/05/20 06/07/22 Unknown History mometasone 50 mcg/actuation nasal 2 spray intranasal DAILY PRN 08/05/20 05/31/22 Unknown History spray allergies multivitamin 1 tab PO DAILY 08/05/20 05/31/22 Unknown History omeprazole 20 mg capsule,delayed 20 mg PO DAILY 08/05/20 06/07/22 Unknown History release sennosides 8.6 mg tablet 8.6 mg PO BEDTIME PRN constipation 08/05/20 06/07/22 Unknown History dulaglutide 1.5 mg/0.5 mL 3 mg subcut QWEEK 03/04/21 06/07/22 Unknown History subcutaneous pen injector (Trulicity) empagliflozin 10 mg tablet 10 mg PO DAILY 05/31/22 06/07/22 Unknown History (Jardiance) pramipexole 0.25 mg tablet 0.25 mg PO BEDTIME 05/31/22 06/07/22 Unknown History (Mirapex) cyclosporine 0.05 % eye drops in a 1 drp ophthalmic (eye) Q12H 06/07/22 06/07/22 Unknown History dropperette (Restasis) Exam Height,Weight and Vital Signs: Height 5 ft 4 in Weight 113.398 kg Vital Signs Temp Pulse Resp BP Pulse Ox O2 Del Method 06/20/22 09:43 97.4 F 87 18 151/93 H 95 Room Air Pertinent Lab Results Pertinent Lab Results: Laboratory Tests 06/15/22 09:46 Blood Type B Negative Antibody Screen NEGATIVE Laboratory Tests 06/15/22 06/15/22 09:53 09:53 WBC 6.0 Hgb 14.9 Hct 45.2 Plt Count 206 Sodium 139 Potassium 4.9 Chloride 104 Carbon Dioxide 26 BUN 19 H Creatinine 0.86 Lab Results 06/15/22 06/20/22 06/20/22 Range/Units 09:46 09:40 09:55 POC Glucose 127 H (60-115) mg/dL COVID-19 (PATEL) Negative (Negative) COVID-19 Clin Com See Note Blood Type B Negative Antibody Screen NEGATIVE Airway Mallampati Class: II TM Dist: >3cm Neck ROM: Full Loose/Missing/Broken Teeth: Yes (Missing molars. Caps sides intact. Denies broken or loose teeth) Heart: RRR Lungs: CTAB Assessment and Plan Assessment Anesthesia Assessment: Anesthesia Plan Discussed Final Anesthetic Review NPO: Yes ASA Class: III Final Preanesthetic Review: No Changes in Pt Med Stat, Meds/Allgs Chart Reviewed, Consent Obtained/Reviewed and Anes Risks/Benef Reviewed Patient Risk: Intermediate Procedure Risk: Intermediate Assessment/Block/Sedation in SS: Assess/Block/Sedation-SS Anesthetic Plan Anesthetic Plan: GA Disposition: Standard PACU
--- NOTE | 2022-06-17 13:54 | MHC.SHP ---
Pre-Procedural Eval Section A Date of Service: 06/17/22 The patient is an INPATIENT: Yes The History & Physical has been completed within 30 days and I have reviewed it.: Yes Section B Chief Complaint: Morbid (severe) obesity due to excess calories Relevant Family History (Specify if Yes): No Relevant Social History: None Present Medications: None Medical History: No relevant PMH History of Previous Operations: No relevant previous surgery Allergies: Allergies Allergy/AdvReac Type Severity Reaction Status Date / Time No Known Allergies Allergy Verified 06/07/22 10:49 Review of Systems Sugical H&P ROS: Negative: Constitution, Cardiovascular, Respiratory, Neurological, Psychiatric, Hem-Onc, Allergic/Immunologic, Gastrointestinal, Genitourinary, Musculoskeletal, Integumentary, Endocrine and Eyes/Ears/Nose/Throat Exam Surgical H&P Exam: Normal: HEENT, Normal: Heart, Normal: Lungs, Normal: Extremities, Normal: Abdomen, Normal: Skin and Normal: Neurological Plan Diagnosis/Plan: Unchanged I have reviewed the history and physical and performed a pertinent physical examination on my patient. No changes have occurred unless specified. Time Spent With Patient Time: Total time managing care of this patient today ____ minutes.
[2022-06-20] VITALS (20 sets, daily range): BP systolic 151–170; BP diastolic 69–95; PULSE 59–87; RESP 14–22; TEMP 36.1–37; O2SAT 95–100; BMI 41.7
[2022-06-20 10:02] LABS: IDNOW Serial# 16C4AD1C
[2022-06-20 10:03] LABS: COVID-19 Test Negative (Negative)
[2022-06-20 10:14] LABS: Glucose, Whole Blood 127 mg/dL (60-115)
[2022-06-20] MEDS: Lactated Ringers 1,000 ML 999 ML IV (10:51)
--- NOTE | 2022-06-20 10:52 | P.BOP_ITS ---
Brief Operative Note Date of Service: 06/20/22 Pre-op diagnosis: Morbid obesity with comorbidities (see below) Post-op diagnosis: same (& diaphragmatic hernia) Procedure: INITIAL PATIENT BMI ON PRESENTATION AT OUR OFFICE: 48.7 kg/m2 LAST BMI BEFORE SURGERY: 42.3 kg/m2 COMORBIDITIES: sleep apnea on CPAP, asthma, hypertension, non-insulin dependent diabetes, hyperlipidemia, GERD, Restless leg syndrome, liver fibrosis, diaphragmatic hernia ?The patient presented to the Weight Management Program with significant obesity that was negatively impacting the patient's comorbidities as listed above.? The program is a phased program with a special focus on preoperative medical weight management to promote substantial weight loss and prepare the patients for the second phase of the program: bariatric surgery. The patient participated in an intensive weekly lifestyle ?intervention and exercise program during which the patient ?has lost between the initial office visit and the last preoperative visit 38.7 lbs, or 13.65% of initial actual body weight. It was deemed appropriate for the patient to now have bariatric surgery. In light of the current Covid-19 pandemic and the well documented strong association of obesity and increased risk of worse outcomes if infected with Covid-19 (REFERENCES: https://pubmed.ncbi.nlm.nih.gov/48575690/ ,? https://pubmed.ncbi.nlm.nih.gov/78084863/ ), any delay in undergoing bariatric surgery may lead to the patient's worsening health condition and increased?risk of more severe Covid-19 disease if infected. In addition a recent?study from [facility] published in [facility] [employer] on 06/20/2021 ([email or web address]) found that, among patients with obesity, substantial weight loss achieved with surgery was associated with improved outcomes of COVID-19 infection. The findings suggest that obesity can be a modifiable risk factor for the severity of COVID-19 infection. In addition, the patient met the BMI-criteria for bariatric surgery based on the BMI on initial presentation. The patient should not be penalized for achieving such weight loss because ?it is not sustainable long-term without surgical intervention and it was achieved in preparation for bariatric surgery ?under my direction and based on my published research ([email or web address]).[email or web address] and? https://www.soard.org/article/F0678-4512(94)34547-X/pdf ) ?that a 10% preoperative weight loss improves long-term weight loss after surgery and reduces perioperative complications.? Insurance carriers such as [facility] have endorsed my recommendations ?and have included in their policies criteria to include a 10% preoperative weight loss requirement. PROCEDURE: Esophago-gastroscopy, laparoscopic repair of incarcerated diaphragmatic hernia, laparoscopic lysis of adhesions, laparoscopic sleeve gastrectomy and laparoscopic gastropexy INDICATIONS: This is a 56 year-old female who was electively scheduled for laparoscopic, possibly open sleeve gastrectomy. The risks and complications of the procedure were discussed with the patient in advance, particularly the po ssibility of ; pulmonary embolism; staple line leak; bleeding; GERD; cardiac, pulmonary, or renal complications; as well as long-term problems such as insufficient weight loss, vitamin deficiency, strictures, or ulcers. The patient understood all the risks, and was in agreement to proceed with surgery. DESCRIPTION OF PROCEDURE: After informed consent was obtained from the patient, the patient was given preoperative antibiotics, and was transferred to the operating room. After successful induction of general anesthesia, pneumatic compression devices were placed on both lower extremities. An upper endoscopy was performed next. The oropharynx and esophagus appeared to be within normal limits. There was a diaphragmatic hernia present of that was not reported at the preoperative upper GI but was seen at the preoperative EGD. The stomach was entered. Then after all fluid and air were suctioned and the stomach was fully decompressed, the scope was withdrawn and secured in the mid esophagus. The patient was then prepped and draped in the usual sterile manner, and abdominal access was established at the right upper quadrant with the Shabana technique. A 12 mm blunt port was inserted, and the abdomen was insufflated with CO2 to a pressure of 15 mmHg. Under direct visualization, additional ports were placed, specifically two 5 mm Versi-step ports to the left upper quadrant, and a 5 mm Versi-Step port to the right upper quadrant. 1% lidocaine plain was used to infiltrate all port sites as well as all fascia defects. Following that, the patient was placed in a steep reverse Trendelenburg position. An additional 5 mm port was placed to the right flank for the Mediflex retractor that was used to retract the left lobe of the liver. The gastro-esophageal fat pad was opened with the ultrasonic device (Thunderbeat, Olympus) and the anterior esophagus and hiatus were exposed. The angle of His was opened with the ultrasonic device the fundus of the stomach from any diaphragmatic and splenic attachments. I then opened the gastrocolic ligament between the transverse colon and the greater curvature of the stomach with the ultrasonic device to enter the lesser sac and facilitate the ligation of the short gastric vessels. I started at a mid-point along the greater curvature and using the Thunderbeat, all short gastric vessels were divided all the way to the angle of His until the left saroj was completely dissected at its entirety. I then divided the gastro-colic ligament distally to a distance of about 3-4 cm proximal to the pylorus. There were extensive congenital adhesions between the pancreas and posterior gastric wall. Those were lysed completely with the ultrasonic device. Adhesiolysis took approximately 45 min to complete. There was an obvious significant-sized hiatal hernia. I continued dissecting along the hiatus toward the left saroj and the angle of His. I fully mobilized the fat pad that was incarcerated in the hernia. I then continued by dissecting even further into the posterior retro-esophageal space all the way to the angle of His. I continued to mobilize the esophagus into the mediastinum circumferentially. Both vagal nerves were seen and preserved. At that point, I was able to have at least 3 to 5 cm of esophagus into the abdomen.? After I completely mobilized the esophagus from both the left and right saroj and I had a good mobilization of the esophagus circumferentially, I closed the hernia defect with five interrupted #0 Surgidac sutures using the Endo Stitch device, three of which was placed posterior and two of which anterior to the esophagus. ? The stomach was then divided transversely with one Endo NYDIA-45 purple, one NYDIA- 45 orange load, two NYDIA-60 purple loads and two NYDIA-60 articulating orange loads using the AEON stapler and loads. Every effort was made that the gastric sleeve had a tubular shape and an even caliber throughout. Once the sleeve resection was completed, the staple line of the gastric sleeve was reinforced with Hemoclips. The resected stomach was retrieved without difficulty from the Shabana port. A gastropexy was then performed in order to prevent postoperative GERD and partial gastric volvulus. Several interrupted 2.0 Surgidac sutures were placed between the sleeve's staple line and the previously divided greater omentum and gastro-colic ligament using the Endo-Stitch device. ?An upper endoscopy was performed. There was no narrowing at the GE junction. The scope was easily advanced all the way to the pylorus which was clearly visualized. There was no narrowing anywhere and the sleeve's caliber was even throughout. The sleeve's staple line was inspected and there was no evidence of ischemia, bleeding or dehiscence. At that point the gastroscope was withdrawn from the patient?s mouth while we were decompressing the bowel and the stomach from any remaining air. I looked into the lesser sac to see how the sleeve was situating and it was situating well. There was no bleeding from the staple line, spleen, or short gastric vessels. The Mediflex retractor was removed, and the undersurface of the liver was inspected and there was no bleeding. The patient was placed in supine position. I closed the fascial defect of the 12 mm port site with a figure of eight #1 Polysorb suture. Then 30cc of Ropivacaine plain with 10 mg of Dexamethasone were used to infiltrate the fascial closure as well as all skin incisions. A total of 7ml of Zynrelef was applied in the Shabana wound. At this point, the abdomen was deflated, all ports were removed under direct vision, and no ble eding was noted from any of the port sites. The skin incisions were irrigated with saline and were closed with 4-0 absorbable monofilament sutures. Steri- Strips and OpSites were used to cover all incisions. The patient was extubated and was transferred in stable condition to the recovery room for further care. I was present and performed all perla parts of the procedure. Ms. Renson was the plastic surgery assistant. There were no residents to assist with this case. Pal Galindo MD, PhD, FACS Surgeon: José Luis Galindo MD Anesthesia: GETA, local and other (TAP block and 7ml of Zynrelef) Was an Child Care Provider used for this Procedure?: No Child Care Provider: Flaca Bates Estimated blood loss (mL): 10 IV fluids (mL): 2,100 Urine output (mL): 0 (No Morin to measure output) Pathology: other (Stomach) Condition: stable Disposition: PACU
--- NOTE | 2022-06-20 10:57 | PM.PNGS ---
Subjective Subjective Date of Service: 06/21/22 Interval history: Patient has mild incisional pain, but was able to ambulate and use the incentive spirometer. She is tolerating phase 1 bariatric diet Physical Exam Vital Signs: Vital Signs: Last Vital Signs Temp 97.4 F 06/20/22 09:43 Pulse 87 06/20/22 09:43 Resp 18 06/20/22 09:43 BP 151/93 H 06/20/22 09:43 Pulse Ox 95 06/20/22 09:43 O2 Del Method 06/20/22 09:43 BMI result Body Mass Index 41.7 GI: Inspection: Yes normal to inspection and Yes incision (clean, dry and intact) Palpation (GI): Soft to palpation Extrem: Right lower extremity: normal to inspection (no calf tenderness) Left lower extremity: normal to inspection (no calf tenderness) Objective Data Active Medications Albuterol Sulfate (Albuterol Sulfate (0.083%) 2.5 Mg/3 Ml Vial.Neb) 2.5 mg INHALE ONCE PRN PRN Reason: Shortness of Breath/Wheezing Fentanyl (Fentanyl Citrate/Pf 100 Mcg/2 Ml Vial) 25 mcg IVPUSH Q5M PRN; Protocol PRN Reason: Pain, Moderate (Pain Scale 4-6 Hydromorphone HCl (Hydromorphone Hcl 0.5 Mg/0.5 Ml Syringe) 0.25 mg IVPUSH Q5M PRN; Protocol PRN Reason: Pain, Severe (Pain Scale 7-10) Lactated Ringer's (Lr) 1,000 mls @ 100 mls/hr IVCONT .Q10H [facility] Lactated Ringer's (Lr) 1,000 mls @ 999 mls/hr IV .Q1H1M [facility] Stop: 06/20/22 11:45 Last Admin: 06/20/22 10:51 Dose: 999 mls/hr Documented By: JCARLOS Promethazine HCl 6.25 mg/ (Sodium Chloride) 50.25 mls @ 201 mls/hr IV ONCE PRN PRN Reason: Nausea and Vomiting Ondansetron HCl (Ondansetron Hcl 4 Mg/2 Ml Vial) 4 mg IVPUSH ONCE PRN PRN Reason: Nausea and Vomiting Labs CBC & Chem 7: 06/21/22 05:17 06/21/22 05:17 Labs: Laboratory Results - last 24 hr 06/20/22 06/20/22 09:40 09:55 POC Glucose 127 H COVID-19 (PATEL) Negative COVID-19 Clin Com See Note Procedures Date of Service Date of Service: 06/21/22 Progress Note: A&P Assessment and plan (1) Morbid obesity: Status: Acute Assessment and Plan: s/p laparoscopic sleeve gastrectomy, lysis of adhesions repair of diaphragmatic hernia, and gastropexy Doing well Check am labs. If OK, will discharge home? (2) Non-insulin treated type 2 diabetes mellitus: Status: Acute (3) Hypertension: Status: Acute (4) Sleep apnea with use of continuous positive airway pressure (CPAP): Status: Acute (5) Asthma: Status: Acute (6) Restless leg syndrome: Status: Acute (7) GERD (gastroesophageal reflux disease): Status: Acute (8) Hypercholesterolemia: Status: Acute (9) Liver fibrosis: Status: Acute (10) S/P repair of paraesophageal hernia: Status: Acute (11) Paraesophageal hernia: Status: Acute (12) S/P laparoscopic sleeve gastrectomy: Status: Acute Time Spent With Patient Time: Total time managing care of this patient today ____ minutes. Quality Stroke Does the patient have a stroke diagnosis?: No VTE Prior VTE?: No VTE Risk Level:: Surgical - moderate VTE Device Contraindication: N/A - Device Ordered VTE Drug Contraindication: Treatment Not Indicated
[2022-06-20] MEDS: ceFAZolin Sodium/Dextrose,Iso 2 GM/50 ML PIGGYBACK IV ×2 (11:24→18:03)
[2022-06-20] MEDS: Acetaminophen 1,000 MG/100 ML PIGGYBACK 400 MG IV (13:25)
--- NOTE | 2022-06-20 14:09 | P.PNGS_ITS ---
Subjective Subjective Date of Service: 06/20/22 Interval history: Patient has mild incisional pain, but was able to ambulate and use the incentive spirometer. She is tolerating phase 1 bariatric diet Physical Exam Vital Signs: Vital Signs: Last Vital Signs Temp 97.4 F 06/20/22 09:43 Pulse 87 06/20/22 09:43 Resp 18 06/20/22 09:43 BP 151/93 H 06/20/22 09:43 Pulse Ox 95 06/20/22 09:43 O2 Del Method 06/20/22 09:43 BMI result Body Mass Index 41.7 Objective Data Active Medications Albuterol Sulfate (Albuterol Sulfate (0.083%) 2.5 Mg/3 Ml Vial.Neb) 2.5 mg INHALE ONCE PRN PRN Reason: Shortness of Breath/Wheezing Fentanyl (Fentanyl Citrate/Pf 100 Mcg/2 Ml Vial) 25 mcg IVPUSH Q5M PRN; Protocol PRN Reason: Pain, Moderate (Pain Scale 4-6 Hydromorphone HCl (Hydromorphone Hcl 0.5 Mg/0.5 Ml Syringe) 0.25 mg IVPUSH Q5M PRN; Protocol PRN Reason: Pain, Severe (Pain Scale 7-10) Lactated Ringer's (Lr) 1,000 mls @ 100 mls/hr IVCONT .Q10H KIANNA Promethazine HCl 6.25 mg/ (Sodium Chloride) 50.25 mls @ 201 mls/hr IV ONCE PRN PRN Reason: Nausea and Vomiting Losartan Potassium (Losartan Potassium 25 Mg Tablet) 25 mg PO DAILY KIANNA; Protocol Non-Formulary Medication (Fluticasone Propion-Salmeterol) 1 inhalation INHALE BID KIANNA Ondansetron HCl (Ondansetron Hcl 4 Mg/2 Ml Vial) 4 mg IVPUSH ONCE PRN PRN Reason: Nausea and Vomiting Pramipexole Dihydrochloride (Pramipexole Di-Hcl 0.25 Mg Tablet) 0.25 mg PO BEDTIME [facility] Labs Labs: Laboratory Results - last 24 hr 06/20/22 06/20/22 09:40 09:55 POC Glucose 127 H COVID-19 (PATEL) Negative COVID-19 Clin Com See Note Progress Note: A&P Time Spent With Patient Time: Total time managing care of this patient today ____ minutes. Quality Stroke Does the patient have a stroke diagnosis?: No VTE Prior VTE?: No VTE Risk Level:: Surgical - moderate VTE Device Contraindication: N/A - Device Ordered VTE Drug Contraindication: Treatment Not Indicated
--- NOTE | 2022-06-20 14:09 | P.DS_ITS ---
DS: Providers Provider Date of Service: 06/21/22 Date of admission: 06/20/22 09:36 Primary care physician: Shefali Max MD DS: Diagnosis Discharge Diagnosis (1) Morbid obesity: Status: Acute (2) Non-insulin treated type 2 diabetes mellitus: Status: Acute (3) Hypertension: Status: Acute (4) Sleep apnea with use of continuous positive airway pressure (CPAP): Status: Acute (5) Asthma: Status: Acute (6) Restless leg syndrome: Status: Acute (7) GERD (gastroesophageal reflux disease): Status: Acute (8) Hypercholesterolemia: Status: Acute (9) Liver fibrosis: Status: Acute DS: Summary Hospital Course Hospital Course: ADMITTING DIAGNOSIS: morbid obesity, DM, HTN, GERD, hypercholesteremia, Restless leg syndrome DISCHARGE DIAGNOSIS: same, s/p laparoscopic sleeve gastrectomy and repair diaphragmatic hernia PAST SURGICAL HISTORY: tubal ligation carpal tunnel surgery PROCEDURE: upper endoscopy, laparoscopic sleeve gastrectomy and repair of diaphragmatic hernia hernia DISCHARGE SUMMARY: History of Present Illness: The patient is a 56 year-old woman with a BMI of 49.3 kg/m2 and associated co- morbidities as described above. The patient had extensive work-up, lost 33.4 lbs preoperatively and was electively scheduled for laparoscopic, possible open sleeve gastrectomy and gastropexy. Risks and complications of the surgery were discussed with the patient in advance, particularly the possibility of , pulmonary embolism, anastomotic leak, bleeding, bowel injury, GERD, cardiac, renal or pulmonary complications. The patient understood all the risks and was in agreement with the surgical plan. Hospital Course: The patient underwent an uneventful laparoscopic sleeve gastrectomy with gastropexy and repair of diaphragmatic hernia on the day of admission. Postoperatively, the patient was transferred to the surgical floor. The patient received IV Acetaminophen and IV dilaudid for pain control. Patient was started on bariatric phase 1 diet POD #0. On postoperative day one, the patient was feeling well without nausea, vomiting, fevers, or tachycardia. The patient had some mild incisional pain and the abdomen was soft. On the morning of postoperative day one, the patient was continued on 1 ounce of water or ice every half hour. During the day, the patient did fairly well, having some incisional pain, but able to ambulate adequately and to tolerate liquids well. Since the patient is doing well, we decided that the patient was ready to be discharged. The patient was given instructions to follow-up with me next week and to call my office for any fever over 101, persistent abdominal pain, nausea, vomiting, GERD, symptoms of DVT such as calf tenderness, or leg swelling, or pulmonary embolism such as chest pain or shortness of breath. The patient was also instructed to drink 40-60 ounces of liquids per day using the 1-ounce cups. The patient had been given prescriptions for Tylenol for pain, Zofran prn for nausea, and pantoprazole and carafate previously. The patient was encouraged to ambulate and use the incentive spirometer. The patient was allowed to shower, but no baths, and encouraged to stay active at home. All of these instructions were given to the patient personally. All questions were answered and the patient understood all instructions, the instructions were also given to the patient in print. Time Spent with Patient Time attestation: Total time managing care of this patient today ____ minutes. Discharge coordination time: Less than 30 minutes Quality: Safe Use of Opioids Does Pt have an Active Cancer Diagnosis on the Problem List?: No Quality: Stroke Does the patient have a stroke diagnosis?: No Physical Exam Vital Signs: Vital Signs: Last Vital Signs Temp 97.4 F 06/20/22 09:43 Pulse 87 06/20/22 09:43 Resp 18 06/20/22 09:43 BP 151/93 H 06/20/22 09:43 Pulse Ox 95 06/20/22 09:43 O2 Del Method 06/20/22 09:43 BMI result Body Mass Index 41.7 DS: Data Data Completed and Pending Pending studies at discharge: Pending at discharge 06/20/22 13:09 Surgical [PTH] Routine Labs on day of discharge: Laboratory Results - last 24 hr 06/20/22 06/20/22 09:40 09:55 POC Glucose 127 H COVID-19 (PATEL) Negative COVID-19 Clin Com See Note Discharge Plan Discharge Anticipated Discharge Date/Time: 06/21/22 10:00 Patient Disposition: Home, Self-Care Discharge Diagnosis: s/p sleeve gastrectomy and hiatal hernia repair Referrals: Shefali Max MD [Primary Care Provider] - 1 Week Discharge Medications: Continued cyclosporine [Restasis] 0.05 % Dropperette 1 drp OPHTHALMIC (EYE) Q12H levocetirizine 5 mg tablet 5 mg PO DAILY (DME) blood sugar diagnostic Strip See Rx Instructions Not Applicable BID Qty: 10 Rx Instructions: As directed losartan 25 mg tablet 25 mg PO DAILY atorvastatin 20 mg tablet 20 mg PO BEDTIME fluticasone propion-salmeterol 113-14 mcg/actuation aerosol powdr breath activated 1 inh inhalation BID (DME) flash glucose sensor Kit See Rx Instructions topical Q OTHER DAY Qty: 1 Rx Instructions: As directed pantoprazole 40 mg tablet,delayed release (DR/EC) 40 mg PO DAILY Qty: 30 2RF sucralfate 100 mg/mL suspension 10 ml PO BID Qty: 400 2RF ondansetron HCl 4 mg tablet 4 mg PO Q12H Qty: 20 0RF pramipexole [Mirapex] 0.25 mg tablet 0.25 mg PO BEDTIME Discontinued Jardiance 25 mg tablet 1 tab PO DAILY Trulicity 1.5 mg/0.5 mL pen injector 3 mg subcut QWEEK sennosides 8.6 mg tablet 8.6 mg PO BEDTIME PRN (Reason: constipation) metformin 1,000 mg tablet 1,000 mg PO BID cholecalciferol (vitamin D3) 25 mcg (1,000 unit) tablet 25 mcg PO DAILY omeprazole 20 mg capsule,delayed release(DR/EC) 20 mg PO DAILY multivitamin Tablet 1 tab PO DAILY Discharge Orders: Discharge Order (Routine); Ordered 06/21/22 Ordered By: José Luis Galindo Activity on Discharge: No heavy lifting Stand Alone Forms: Patient Portal Discharge page Care Plan Goals: weight loss Health Concerns: morbid obesity Plan of Treatment: No tub baths, sex or returning to work until discussed at first post op appointment. No exercise, alcohol, tobacco or illegal drug use. Continue to use incentive spirometer hourly while awake. Walk in home for 5- 10 minutes every 2 hours during the first week. Continue phase 1 diet today and start phase 2 diet tomorrow morning. Follow all instructions in the bariatric handbook and call with any questions. 1. Please call your doctor or come back to the emergency room should any new symptoms arise. 2. You will receive a courtesy call from [facility] 24-48 hours after discharge. 3. Activity: abstain from alcohol, practice limited stair climbing, no bending, no driving, no exercise, no illicit substances, no lifting, no sex, no tub bath, no work. 4. Diet: continue as discussed with bariatric team.. 5. Dressing Change/Wound Care: Do not change or remove surgical dressings unless they are wet or soiled. 6. Call your doctor if: - Your temperature exceeds 101.5 F - You experience excessive pain or swelling - You have an unexpected reaction to medication - You have excessive bleeding - You experience continued vomiting/nausea - Your incision begins to separate - Your incision shows signs of infection such as increased redness, swelling, excessive pain, heat, or drainage (light blood or clear fluid is normal) 7. General instructions: No lifting greater than 5 lbs for the next 4 weeks[address] within 24 hours of taking narcotic pain medications. If you do not move your bowels in the next 2 days, please take milk of magnesia over the counter. Please follow the post op diet and do not advance your diet until you are seen in the office in about 2 weeks. Please walk around your home every hour or two to prevent blood clots from forming in your legs. You do not need to wake from sleeping to walk. Please sleep in a bed or couch to prevent kinking at the hips and knees. Please take your incentive spirometer (your lung back gray cloth washer) home with you and use it for the next few days to prevent pneumonias. You may shower, no hot tubs, baths or swimming pools. Please call the office with any questions or concerns such as increasing abdominal pain, fever, chills, shortness of breath, chest pain, leg pain or swelling, or redness or drainage from your incisions. Do not hesitate to contact the office with any questions at . The patient's medical history has been reviewed and they are considered low risk for post op DVT and therefore DVT prophylaxis is not considered necessary. Travel after surgery was reviewed. The patient has not disclosed any travel plans during the first 30 days after surgery and they have been advised that within the first 30 days after surgery any bus, plane, train or car travel over 2 hours in duration is contraindicated due to the possibility of developing blood clots from immobility. Any travel, needs to include periods of ambulation of 10 minutes in duration every 2 hours. The patient was instructed to discuss any plans for travel during this period with their bariatric surgeon. Assessment: s/p sleeve gastrectomy Discharge Date/Time: 06/21/22 11:00
[2022-06-20] MEDS: Famotidine/PF 20 MG/2 ML VIAL IVPUSH ×2 (14:40→20:01)
[2022-06-20] MEDS: HYDROmorphone HCl 0.5 MG/0.5 ML SYRINGE 0.25 MG IVPUSH ×3 (14:48→16:37)
[2022-06-20 14:58] LABS: Hemoglobin 13.5 g/dl (12.0-16.0)
[2022-06-20 15:32] LABS: Anion Gap 14 (12-20); Blood Urea Nitrogen 16 mg/dL (9-16); Calcium 9.3 mg/dL (8.4-10.2); Carbon Dioxide 23 mmol/L (22-29); Chloride 104 mmol/L (96-108); Creatinine Clr Calc Pharmacy 84.7; Estimated Glomerular Filt Rate > 60; Glucose Random 160 mg/dL (60-115); Potassium 3.8 mmol/L (3.3-5.1); Sodium 137 mmol/L (135-145)
--- NOTE | 2022-06-20 15:47 | PHA.MEDREC ---
Pharmacy Consult ? Medication Reconciliation Pharmacy has completed the medication reconciliation.
[2022-06-20] MEDS: Lactated Ringers 1,000 ML 100 ML IVCONT ×2 (16:57→20:53)
[2022-06-20 19:59] LABS: Glucose, Whole Blood 186 mg/dL (60-115)
[2022-06-20] MEDS: Acetaminophen 1,000 MG/100 ML PIGGYBACK 16.7 MG IV (20:01)
[2022-06-20] MEDS: Pramipexole Di-HCL 0.25 MG TABLET PO (20:01)
[2022-06-20] MEDS: 0.9 % Sodium Chloride Flush 3 ML SYRINGE IVFLUSH (20:10)
[2022-06-21] VITALS: BP 135/58; PULSE 73; RESP 18; TEMP 36.6; O2SAT 97
[2022-06-21] MEDS: Lactated Ringers 1,000 ML 100 ML IVCONT (02:04)
[2022-06-21] MEDS: Acetaminophen 1,000 MG/100 ML PIGGYBACK 16.7 MG IV ×2 (02:04→09:13)
[2022-06-21 03:48] VITALS: BP 126/64; PULSE 70; RESP 18; TEMP 36.3; O2SAT 96
[2022-06-21 06:26] LABS: MANUAL DIFF FLAG NO
[2022-06-21 06:36] LABS: Basophils Percent Auto 0.1 % (0-2); Hematocrit 38.2 % (37.0-47.0); Hemoglobin 12.7 g/dl (12.0-16.0); Imm Gran Abs Auto 0.05 X10*3/uL (0.00-0.03); Imm Gran Pct Auto 0.6 % (0.0-0.4); Lymphocytes Absolute Auto 1.2 X10*3/uL (1.2-4.9); Lymphocytes Percent Auto 13.5 % (20-40); Mean Corpuscular HGB Conc 33.2 g/dl (31.0-35.0); Mean Corpuscular Hemoglobin 26.2 pg (27.0-33.0); Mean Corpuscular Volume 78.9 fL (80.0-98.0); Mean Platelet Volume 12.7 fL (9.4-12.3); Monocytes Absolute Auto 0.6 X10*3/uL (0.1-1.2); Monocytes Percent Auto 6.5 % (2-11); Neutrophils Absolute Auto 6.8 x10*3/uL (2.0-8.3); Neutrophils Percent Auto 79.3 % (45-73); Platelet Count 170 X10*3/uL (160-400); Red Blood Count 4.84 X10*6/uL (4.20-5.50); White Blood Count 8.6 X10*3/uL (4.8-10.8)
[2022-06-21 07:25] LABS: Anion Gap 14 (12-20); Blood Urea Nitrogen 14 mg/dL (9-16); Calcium 8.9 mg/dL (8.4-10.2); Carbon Dioxide 25 mmol/L (22-29); Chloride 104 mmol/L (96-108); Creatinine Clr Calc Pharmacy 96.5; Estimated Glomerular Filt Rate > 60; Glucose Random 131 mg/dL (60-115); Potassium 4.3 mmol/L (3.3-5.1); Sodium 139 mmol/L (135-145)
[2022-06-21 07:56] VITALS: BP 128/66; PULSE 78; RESP 18; TEMP 36.6; O2SAT 99
[2022-06-21] MEDS: Famotidine/PF 20 MG/2 ML VIAL IVPUSH (09:13)
[2022-06-21] MEDS: Losartan Potassium 25 MG TABLET PO (09:13)
--- NOTE | 2022-06-21 10:16 | MHC.CM.PN ---
EMR REVIEWED, PT ADMITTED S/P LAP SLEEVE GASTRECTOMY, CM MET W/PT WHO REPORTS SHE IS INDEP W/ALL CARE, USES A CPAP AND DIABETIC SUPPLIES HOWEVER NOT ON INSULIN, NO HOME SERVICES. PT VERIFIES PCP IS PRACHI QUINTEROS, LATANYA X4 AND PT EDUCATED ON AND COMPLETED A HCP W/CM, PT NAMES EL[facility] DTR DIANNE LIEN [phone] HER [facility] AND ALTERNATE SECOND OLDEST DTR JAKE LIEN [phone]. D/C PLAN: HOME TODAY NO SERVICES W/FAMILY FOR TRASPORT
--- NOTE | 2022-06-21 11:06 | HO.POSTANES ---
Post Anesthesia Evaluation Post Anesthesia Evaluation Vital Signs: Vital Signs Temp Pulse Resp BP Pulse Ox O2 Del Method 06/21/22 07:56 97.9 F 78 18 128/66 99 Room Air 06/21/22 03:48 97.3 F 70 18 126/64 96 Room Air 06/21/22 00:00 97.9 F 73 18 135/58 L 97 Room Air Anesthesia: General Endotracheal-GETA Mental Status: Awake Pain Control: Satisfactory Nausea/Vomiting: None Hydration: Adequate Anesthesia-Related Issues: No Anes. Related Issues
== END 2022-06-21 11:00 | disposition home or self-care (01) | DRG 403 ==
LOC: HO.SSSA 14:09 → HO.S3 16:05
PROVIDERS: Physician Assistant; Admitting Provider Surgery; PCP Internal Medicine; Visit Provider Surgery
PROC: 0DB64Z3 Excision of Stomach, Percutaneous Endoscopic Approach, Vertical (ICD-10-PCS; CPT 43845; principal; 2022-06-20 11:00)
DX: E66.01 Morbid (severe) obesity due to excess calories (principal); K74.00 Hepatic fibrosis, unspecified; K44.0 Diaphragmatic hernia with obstruction, without gangrene; E11.9 Type 2 diabetes mellitus without complications; E78.00 Pure hypercholesterolemia, unspecified; G25.81 Restless legs syndrome; Q43.3 Congenital malformations of intestinal fixation; Z68.41 Body mass index [BMI] 40.0-44.9, adult; G47.33 Obstructive sleep apnea (adult) (pediatric); K21.9 Gastro-esophageal reflux disease without esophagitis; Z20.822 Contact with and (suspected) exposure to COVID-19; Z79.51 Long term (current) use of inhaled steroids; Z79.899 Other long term (current) drug therapy
CPT/HCPCS: 36415; 80048; 82947; 85014; 85018; 85025; 86850; 86900; 86901; 87635; 88307; 88342; 93005; A4649; C9088; J0131; J0690; J1100; J1170; J2250; J2405; J2795; J3010

== ENCOUNTER → 2022-06-27 10:09 | Outpatient (BNVA) | payer OTHER, SELFPAY | PROVIDERS: PCP Internal Medicine; Visit Provider Physician Assistant Surgical | DX: Z13.89 Encounter for screening for other disorder (principal) ==

== ENCOUNTER → 2022-07-11 10:45 | Outpatient (BNVA) | payer OTHER, SELFPAY | PROVIDERS: Visit Provider Physician Assistant Surgical | DX: E66.01 Morbid (severe) obesity due to excess calories (principal); E11.9 Type 2 diabetes mellitus without complications; I10 Essential (primary) hypertension; Z68.38 Body mass index [BMI] 38.0-38.9, adult; Z87.19 Personal history of other diseases of the digestive system; Z90.3 Acquired absence of stomach [part of] | CPT/HCPCS: 99212 ==

== ENCOUNTER → 2022-07-25 09:46 | Outpatient (BNVA) | payer OTHER, SELFPAY | PROVIDERS: Visit Provider Physician Assistant Surgical | DX: E66.9 Obesity, unspecified (principal); Z68.37 Body mass index [BMI] 37.0-37.9, adult; Z98.84 Bariatric surgery status | CPT/HCPCS: 99212 ==

== ENCOUNTER → 2022-08-10 09:36 | Outpatient (BNVA) | payer OTHER, SELFPAY | PROVIDERS: Visit Provider Physician Assistant Surgical | DX: Z13.89 Encounter for screening for other disorder (principal) ==

== ENCOUNTER → 2022-08-23 09:34 | Outpatient (BNVA) | payer OTHER, SELFPAY | PROVIDERS: Visit Provider Physician Assistant Surgical | DX: E66.9 Obesity, unspecified (principal); Z68.35 Body mass index [BMI] 35.0-35.9, adult; Z98.84 Bariatric surgery status | CPT/HCPCS: 99212 ==

== ENCOUNTER → 2022-09-18 09:42 | Outpatient (BNVA) | payer OTHER, SELFPAY | PROVIDERS: Visit Provider Physician Assistant Surgical ==

== ENCOUNTER → 2022-09-29 09:56 | Outpatient (BNVA) | payer OTHER, SELFPAY | PROVIDERS: Visit Provider Physician Assistant Surgical | DX: E66.9 Obesity, unspecified (principal); Z98.84 Bariatric surgery status; Z68.34 Body mass index [BMI] 34.0-34.9, adult | CPT/HCPCS: 99212 ==

== ENCOUNTER → 2022-11-10 10:19 | Outpatient (BNVA) | payer OTHER, SELFPAY | PROVIDERS: Visit Provider Physician Assistant Surgical | DX: E66.9 Obesity, unspecified (principal); Z68.32 Body mass index [BMI] 32.0-32.9, adult; Z98.84 Bariatric surgery status | CPT/HCPCS: 99212 ==

== ENCOUNTER → 2022-12-29 10:27 | Outpatient (BNVA) | payer OTHER, SELFPAY | PROVIDERS: Visit Provider Physician Assistant Surgical | DX: E66.9 Obesity, unspecified (principal); Z68.31 Body mass index [BMI] 31.0-31.9, adult; Z98.84 Bariatric surgery status | CPT/HCPCS: 99212 ==

== ENCOUNTER 2023-03-27 10:02 | Outpatient (AMB) | payer OTHER, SELFPAY ==
--- NOTE | 2023-03-27 10:06 | MHC.OFFVISWM ---
Intake VS Expanded 03/27/23 10:17 BP 117/66 Blood Pressure Location Rt brachial Blood Pressure Position Sitting Pulse 67 Pulse Source Pulse Oximeter Temp 98.7 F Temperature Source Temporal Artery Scan Pulse Oximetry 98 Oxygen Delivery Method Room Air Height 5 ft 4 in Weight 189 lb BMI 32.4 Body Fat % 34.5 Body Fat Mass 65.2 Fat Free Mass 123.6 Visceral Fat Rating 9.0 Body Water % 46.4 Body Water Mass 87.8 Muscle Mass/Score 117.6 Basal Metabolic Rate/Score 1,666 Intake Visit Reasons: (OV) PO LSG 06/20/22 Allergies No Known Allergies Allergy (Verified 03/27/23 10:14) Medication List - Last Reconciled 03/27/23 by ASMITA Atkins atorvastatin 20 mg PO BEDTIME blood pressure monitor As directed blood sugar diagnostic As directed clotrimazole 1% 1 appl topical BID cyclosporine 0.05% (Restasis) 1 drp ophthalmic (eye) Q12H docusate sodium 100 mg PO BID dulaglutide (Trulicity) 1.5 mg subcut QWEEK empagliflozin (Jardiance) 10 mg PO DAILY flash glucose sensor As directed fluticasone propion-salmeterol 113-14 mcg/actuation 1 inh inhalation BID inulin (Fiber Gummies) 2 grams PO DAILY levocetirizine 5 mg PO DAILY losartan 25 mg PO DAILY pramipexole (Mirapex) 0.25 mg PO BEDTIME HPI HPI Comments History of Present Illness Details This?is a?57?yo female who is s/p LSG 06/20/2022. Presents for 9 month post op visit. Weight at last visit on 12/29/2022 was 184.4 pounds with a BMI of 31.6, weight today is 189 pounds, representing a 4.6 pound weight gain with a BMI today of 32.4.? No complaints of nausea, emesis, abdominal pain or reflux, or constipation. Present meal plan includes: pt reports she is not following her meal plan, will have yogurt in morning and night. She is going through a divorce, finances are difficult. Exercise routine includes: nothing formal; climbs stairs at work feels like she doesn't have energy Pt reports itchy rashes in skin fold of abdomen. She has to shower 3x/day sometimes, especially in the summer heat, to keep clean. She did not try clotrimazole ointment yet, has tried other topical treatments but these have not completely resolved the issues. She notices an unpleasant odor of moisture in the skin folds if she does not wash frequently. She notices worsening back pain due to the heaviness of the excess skin. [facility] Medical History (Updated 07/11/22 @ 11:27 by ASMITA Atkins) Hypotension Sleep apnea with use of continuous positive airway pressure (CPAP) Hypertension Non-insulin treated type 2 diabetes mellitus Pre-op evaluation BMI 45.0-49.9, adult Adjustment disorder, unspecified COVID-19 LIANA on CPAP Restless leg syndrome Asthma GERD (gastroesophageal reflux disease) Hypercholesterolemia Type 2 diabetes mellitus BMI greater than 40 Morbid obesity Surgical History Hx of colonoscopy H/O carpal tunnel repair H/O tubal ligation H/O hand surgery Family History Father No problems noted. Mother Diabetes mellitus Daughter No problems noted. Daughter No problems noted. Daughter ADHD Social History Household Members: Family Housing: House Are you a primary wild animal caretaker to a significant other at home: No Do you presently have visiting nurse or other home services: No 75 years or older and lives alone: No Alcohol intake: never Patient Tobacco Use Status: Former Tobacco user Quit Date: 1986 service: No Current occupational status: employed Physical Exam Vital Signs: Last Vital Signs Temp 98.7 F 03/27/23 10:17 Pulse 67 03/27/23 10:17 BP 117/66 03/27/23 10:17 Pulse Ox 98 03/27/23 10:17 Oxygen Delivery Method Room Air 03/27/23 10:17 BMI result Body Mass Index 32.4 Assessment & Plan Assessment & Plan (1) Obesity: Code(s): E66.9 - Obesity, unspecified (2) S/P laparoscopic sleeve gastrectomy: Code(s): Z98.84 - Bariatric surgery status Plan Adjusted meal plan to accommodate pt's preferences with cost: Each day have 1 Celebrate bar, 2 Japanese yogurts (can add berries), 1 protein water, and 1 meal of 2oz protein (4 forks meat or 2 eggs) plus veg/salad. Discussed total volume of food not to exceed 8oz. Gave pt food list, reviewed green/red choices and pt reported having eaten a lot of the red choices. She requests a visit with RD so will schedule in the next few weeks. RTC end of May/early Jun for annual visit. Patient is obese and is not considered stable at this time. I spent a total of 30 minutes reviewing/updating records, examining the patient and counseling the patient on weight management as detailed above. Medications: Refilled clotrimazole 1% 1 appl topical BID 45 grams 3RF Coding Level of Care Code Est Pt Level 4 (60988) Diagnoses Obesity E66.9 S/P laparoscopic sleeve gastrectomy Z98.84
[2023-03-27 10:17] VITALS: BP 117/66; PULSE 67; TEMP 37.1; O2SAT 98; BMI 32.4
== END 2023-03-27 10:59 | disposition home or self-care (01) ==
PROVIDERS: Visit Provider Physician Assistant Surgical
DX: E66.9 Obesity, unspecified (principal); Z68.32 Body mass index [BMI] 32.0-32.9, adult; Z90.3 Acquired absence of stomach [part of]; Z98.84 Bariatric surgery status
CPT/HCPCS: 99213

== ENCOUNTER → 2023-03-27 10:02 | Outpatient (BNVA) | payer OTHER, SELFPAY | PROVIDERS: Visit Provider Physician Assistant Surgical | DX: E66.9 Obesity, unspecified (principal); Z68.32 Body mass index [BMI] 32.0-32.9, adult; Z98.84 Bariatric surgery status | CPT/HCPCS: 99212 ==

== ENCOUNTER → 2023-05-02 11:07 | Outpatient (BNVA) | payer OTHER, SELFPAY | PROVIDERS: Visit Provider Dietitian, Registered | DX: E66.9 Obesity, unspecified (principal) | CPT/HCPCS: 97803 ==

== ENCOUNTER → 2023-05-09 11:32 | Outpatient (BNVA) | payer OTHER, SELFPAY | PROVIDERS: Visit Provider Dietitian, Registered | DX: E66.9 Obesity, unspecified (principal) | CPT/HCPCS: 97803 ==

== ENCOUNTER 2023-05-24 09:39 | Outpatient (AMB) | payer OTHER, SELFPAY ==
--- NOTE | 2023-05-24 09:57 | A.OFFVIS_ITS ---
Intake VS Expanded 05/24/23 11:44 Height 5 ft 4 in Weight 193 lb BMI 33.1 Intake Visit Reasons: (OV) PO LSG 06/20/22 Allergies No Known Allergies Allergy (Verified 03/27/23 10:14) HPI Nutrition Presentation Details [facility] 06/20/22 Reason for consult elevated BMI Diet Assmnt Details Pt reports I am not doing very god anymore . Seems to be very inconsistent with eating habits. Main issue is skipping meals and undereating. not hungry, tries to make herself eat and gags.? One barrier now is that her protein shakes are in her basement , so she hasnt been taking them. She will bring them up today. She also reports not taking her Trulicity. 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 She reports sometimes she tries to eat as little as possible so that she does not regain the weight No consistent exercise routine yet. she is considering getting a [employer] fitness membership Diagnosis Nutrition problem #1 overweight/obesity As related to (etiology) #1 excess energy intake and physical inactivity As evidenced by (sign/symptom) #1 high BMI Monitoring/Goals Nutrition problem monitoring total energy intake, level of knowledge/skill, total PRO intake, total CHO intake and oral fluids Outcome progress progressing Learning/Education Readiness to learn excellent Stages of change action Most Recent Diabetes Results: No Data to Display [facility] Medical History (Updated 07/11/22 @ 11:27 by ASMITA Atkins) Hypotension Sleep apnea with use of continuous positive airway pressure (CPAP) Hypertension Non-insulin treated type 2 diabetes mellitus Pre-op evaluation BMI 45.0-49.9, adult Adjustment disorder, unspecified COVID-19 LIANA on CPAP Restless leg syndrome Asthma GERD (gastroesophageal reflux disease) Hypercholesterolemia Type 2 diabetes mellitus BMI greater than 40 Morbid obesity Surgical History Hx of colonoscopy H/O carpal tunnel repair H/O tubal ligation H/O hand surgery Family History Father No problems noted. Mother Diabetes mellitus Daughter No problems noted. Daughter No problems noted. Daughter ADHD Social History Household Members: Family Housing: House Are you a primary senior care assistant to a significant other at home: No Do you presently have visiting nurse or other home services: No 75 years or older and lives alone: No Alcohol intake: never Comment: medicated prior to transfer to floor Patient Tobacco Use Status: Former Tobacco user Quit Date: 1986 service: No Current occupational status: employed Assessment & Plan Assessment & Plan (1) Obesity (BMI 30-39.9): Code(s): E66.9 - Obesity, unspecified Plan strongly emphasized the need to take her DM meds as prescribed.. aim for 20-30g protein every 3-4 hours.? Patient Instructions: strongly emphasized the need to take her DM meds as prescribed and will talk to endo about other options that could potentially offer greater weight loss benefits. try myprotein or Seeq protien dougherty. gave other options for high protein foods such as quest chips, aloha bars, meat sticks . aim for 20-30g protein every 3-4 hours. Coding Level of Care Code Nutr Indiv Subseq (06475) Diagnoses Obesity (BMI 30-39.9) E66.9 Time Spent (min) 30
[2023-05-24 11:44] VITALS: BMI 33.1
== END 2023-05-24 11:33 | disposition home or self-care (01) ==
PROVIDERS: Visit Provider Dietitian, Registered
DX: E66.9 Obesity, unspecified (principal)

== ENCOUNTER → 2023-05-24 09:39 | Outpatient (BNVA) | payer OTHER, SELFPAY | PROVIDERS: Visit Provider Dietitian, Registered | DX: E66.9 Obesity, unspecified (principal); Z68.33 Body mass index [BMI] 33.0-33.9, adult; Z90.3 Acquired absence of stomach [part of] | CPT/HCPCS: 97803 ==

== ENCOUNTER 2023-06-26 11:36 | Outpatient (AMB) | payer OTHER, SELFPAY ==
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
== END 2023-06-26 16:52 | disposition home or self-care (01) ==
LOC: HO.HBST 11:36
PROVIDERS: Visit Provider Counselor Mental Health
DX: F48.9 Nonpsychotic mental disorder, unspecified (principal)
CPT/HCPCS: 90791

== ENCOUNTER → 2023-06-26 11:36 | Outpatient (BNVA) | payer OTHER, SELFPAY | PROVIDERS: Visit Provider Counselor Mental Health ==

== ENCOUNTER 2023-07-03 10:48 | Outpatient (AMB) | payer OTHER, SELFPAY ==
--- NOTE | 2023-07-03 10:41 | MHC.OFFVISWM ---
Intake Intake Visit Reasons: VIDEO PO LSG 06/20/22 Allergies No Known Allergies Allergy (Verified 03/27/23 10:14) HPI HPI Comments History of Present Illness Details This?is a?57?yo female who is s/p LSG 06/20/2022. Presents for 1 year post op visit. Present meal plan includes: 20-30g protein every 3-4 hours as recommended by RD feels this plan has gone better Had to cut visit short as she was at work, on the bus and couldn't talk. [facility] Medical History (Updated 06/26/23 @ 16:58 by Julianna Pastor) Hypotension Sleep apnea with use of continuous positive airway pressure (CPAP) Hypertension Non-insulin treated type 2 diabetes mellitus Pre-op evaluation BMI 45.0-49.9, adult Adjustment disorder, unspecified COVID-19 LIANA on CPAP Restless leg syndrome Asthma GERD (gastroesophageal reflux disease) Hypercholesterolemia Type 2 diabetes mellitus BMI greater than 40 Morbid obesity Surgical History Hx of colonoscopy H/O carpal tunnel repair H/O tubal ligation H/O hand surgery Family History Father No problems noted. Mother Diabetes mellitus Daughter No problems noted. Daughter No problems noted. Daughter ADHD Social History Household Members: Family Housing: House Are you a primary intensive care unit registered nurse to a significant other at home: No Do you presently have visiting nurse or other home services: No 75 years or older and lives alone: No Alcohol intake: never Comment: medicated prior to transfer to floor Patient Tobacco Use Status: Former Tobacco user Quit Date: 1986 service: No Current occupational status: employed Assessment & Plan Assessment & Plan (1) Obesity: Code(s): E66.9 - Obesity, unspecified (2) S/P laparoscopic sleeve gastrectomy: Code(s): Z98.84 - Bariatric surgery status Plan Had to shorten visit due to pt being at work. Will have pt called to reschedule. Telehealth Telehealth Location of provider rendering services: practice address Location of patient: other Patient Identification confirmed using: Name, : Yes Telehealth method: voice only Patient verbally consented to treatment: Yes Patient verbally consented to billing insurance company: Yes Patient informed of any privacy concerns related to visit: Yes Minutes spent on Phone/Video with Pt.: 5 Coding Level of Care Code Tele Est Pt Level 1 (03805) Diagnoses Obesity E66.9 S/P laparoscopic sleeve gastrectomy Z98.84
== END 2023-07-03 10:59 | disposition home or self-care (01) ==
LOC: HO.HBS 10:48
PROVIDERS: Visit Provider Physician Assistant Surgical
DX: E66.9 Obesity, unspecified (principal); Z98.84 Bariatric surgery status
CPT/HCPCS: 99211

== ENCOUNTER → 2023-07-03 10:48 | Outpatient (BNVA) | payer OTHER, SELFPAY | PROVIDERS: Visit Provider Physician Assistant Surgical ==

== ENCOUNTER 2023-07-10 11:27 | Outpatient (AMB) | payer OTHER, SELFPAY ==
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
== END 2023-07-13 11:02 | disposition home or self-care (01) ==
PROVIDERS: Visit Provider Counselor Mental Health
DX: F48.9 Nonpsychotic mental disorder, unspecified (principal)
CPT/HCPCS: 90832

== ENCOUNTER → 2023-07-10 11:27 | Outpatient (BNVA) | payer OTHER, SELFPAY | PROVIDERS: Visit Provider Counselor Mental Health ==

== ENCOUNTER 2023-07-19 12:38 | Outpatient (AMB) | payer OTHER, SELFPAY ==
--- NOTE | 2023-07-19 12:32 | A.OFFVIS_ITS ---
Intake VS Expanded 07/19/23 12:37 Height 5 ft 4 in Weight 190 lb BMI 32.6 Intake Visit Reasons: TELEPHONE PO LSG 06/20/22 Allergies No Known Allergies Allergy (Verified 03/27/23 10:14) Medication List - Last Reconciled 07/19/23 by ASMITA Atkins atorvastatin 20 mg PO BEDTIME blood pressure monitor As directed blood sugar diagnostic As directed clotrimazole 1% 1 appl topical BID cyclosporine 0.05% (Restasis) 1 drp ophthalmic (eye) Q12H docusate sodium 100 mg PO BID dulaglutide (Trulicity) 1.5 mg subcut QWEEK empagliflozin (Jardiance) 10 mg PO DAILY flash glucose sensor As directed fluticasone propion-salmeterol 113-14 mcg/actuation 1 inh inhalation BID inulin (Fiber Gummies) 2 grams PO DAILY levocetirizine 5 mg PO DAILY losartan 25 mg PO DAILY pramipexole (Mirapex) 0.25 mg PO BEDTIME HPI HPI Comments History of Present Illness Details This?is a?57?yo female who is s/p LSG 06/20/2022. Presents for 1 year post op visit. Weight at last visit on 05/24/2023 was 193 pounds with a BMI of 33.1, weight today is 190 pounds, representing a 3 pound weight loss with a BMI today of 32.6.? No complaints of nausea, emesis, abdominal pain or reflux, or constipation. Reports her blood sugars have been well controlled, taking her meds as directed. Present meal plan includes: 20-30g protein every 3-4 hours as recomm ended by RD 24 hour recall- 2 scrambled eggs, 2 mariya ge wedges and 2 protein dougherty, coleslaw with chicken tired of protein bars and does not want to use anymore Exercise routine includes: hasn't been to the gym but has a membership and plans to return soon tries to park far away and walk more [facility] Medical History (Updated 06/26/23 @ 16:58 by Julianna Pastor) Hypotension Sleep apnea with use of continuous positive airway pressure (CPAP) Hypertension Non-insulin treated type 2 diabetes mellitus Pre-op evaluation BMI 45.0-49.9, adult Adjustment disorder, unspecified COVID-19 LIANA on CPAP Restless leg syndrome Asthma GERD (gastroesophageal reflux disease) Hypercholesterolemia Type 2 diabetes mellitus BMI greater than 40 Morbid obesity Surgical History Hx of colonoscopy H/O carpal tunnel repair H/O tubal ligation H/O hand surgery Family History Father No problems noted. Mother Diabetes mellitus Daughter No problems noted. Daughter No problems noted. Daughter ADHD Social History Household Members: Family Housing: House Are you a primary customer care agent to a significant other at home: No Do you presently have visiting nurse or other home services: No 75 years or older and lives alone: No Alcohol intake: never Comment: medicated prior to transfer to floor Patient Tobacco Use Status: Former Tobacco user Quit Date: 1986 service: No Current occupational status: employed Assessment & Plan Assessment & Plan (1) Obesity: Code(s): E66.9 - Obesity, unspecified (2) S/P laparoscopic sleeve gastrectomy: Code(s): Z98.84 - Bariatric surgery status Plan Pt will resume exercise to help facilitate weight loss. She has a solid meal plan now with what appears to be adequate protein. Has been seeing . Annual labs ordered. Is considering GLP1 inhibitor with her paradichlorobenzene tender, waiting for insurance approval. RTC 3 months. Patient is obese and is not considered stable at this time. I spent a total of 30 minutes reviewing/updating records, examining the patient and counseling the patient on weight management as detailed above. Medications: Refilled clotrimazole 1% 1 appl topical BID 45 grams 3RF Telehealth Telehealth Minutes spent on Phone/Video with Pt.: 15 Coding Level of Care Code Tele Est Pt Level 4 (81929) Diagnoses Obesity E66.9 S/P laparoscopic sleeve gastrectomy Z98.84
[2023-07-19 12:37] VITALS: BMI 32.6
== END 2023-07-19 12:42 | disposition home or self-care (01) ==
LOC: HO.HBS 12:38
PROVIDERS: Visit Provider Physician Assistant Surgical
DX: E66.9 Obesity, unspecified (principal); Z98.84 Bariatric surgery status
CPT/HCPCS: 99214

== ENCOUNTER → 2023-07-19 12:38 | Outpatient (BNVA) | payer OTHER, SELFPAY | PROVIDERS: Visit Provider Physician Assistant Surgical ==

== ENCOUNTER 2023-10-11 09:46 | Outpatient (AMB) | payer OTHER, SELFPAY ==
--- NOTE | 2023-10-11 09:48 | MHC.OFFVISWM ---
Intake VS Expanded 10/11/23 10:10 BP 119/64 Blood Pressure Location Rt brachial Blood Pressure Position Sitting Pulse 78 Pulse Source Pulse Oximeter Temp 96.4 F L Temperature Source Tympanic Pulse Oximetry 78 L Oxygen Delivery Method Room Air Height 5 ft 4 in Weight 196 lb 3.2 oz BMI 33.7 Body Fat % 38.9 Body Fat Mass 84.8 Fat Free Mass 119.8 Visceral Fat Rating 11.0 Body Water % 43.3 Body Water Mass 84.8 Muscle Mass/Score 113.8 Basal Metabolic Rate/Score 1,634 Intake Visit Reasons: PO LSG 06/20/22 Allergies No Known Allergies Allergy (Verified 10/11/23 10:22) Medication List - Last Reconciled 10/11/23 by ASMITA Atkisn atorvastatin 20 mg PO BEDTIME blood pressure monitor As directed blood sugar diagnostic As directed clotrimazole 1% 1 appl topical BID cyclosporine 0.05% (Restasis) 1 drp ophthalmic (eye) Q12H docusate sodium 100 mg PO BID dulaglutide (Trulicity) 1.5 mg subcut QWEEK empagliflozin (Jardiance) 10 mg PO DAILY flash glucose sensor As directed fluticasone propion-salmeterol 113-14 mcg/actuation 1 inh inhalation BID inulin (Fiber Gummies) 2 grams PO DAILY levocetirizine 5 mg PO DAILY losartan 25 mg PO DAILY pramipexole (Mirapex) 0.25 mg PO BEDTIME HPI HPI Comments History of Present Illness Details This?is a?58?yo female who is s/p LSG 06/20/2022. Presents for 16 month post op visit. Weight gain +6.2lbs since last OV 3 months ago.? No complaints of nausea, emesis, abdominal pain or reflux. Uses senna for constipation. Also has had difficulty getting her Mounjaro due to low supply. Complains of hair loss. Present meal plan includes: 20-30g protein every 3-4 hours as recommended by RD drinks one protein water per day may snack on tangerines or oranges for dinner- meat and salad, or stir villagran taking Celebrate MVI had been drinking Jose coffee with caramel swirl but recently cut that out Exercise routine includes: was unable to afford the gym for a while, recently restarted walking [facility] Medical History (Updated 06/26/23 @ 16:58 by Julianna Pastor) Hypotension Sleep apnea with use of continuous positive airway pressure (CPAP) Hypertension Non-insulin treated type 2 diabetes mellitus Pre-op evaluation BMI 45.0-49.9, adult Adjustment disorder, unspecified COVID-19 LIANA on CPAP Restless leg syndrome Asthma GERD (gastroesophageal reflux disease) Hypercholesterolemia Type 2 diabetes mellitus BMI greater than 40 Morbid obesity Surgical History Hx of colonoscopy H/O carpal tunnel repair H/O tubal ligation H/O hand surgery Family History Father No problems noted. Mother Diabetes mellitus Daughter No problems noted. Daughter No problems noted. Daughter ADHD Social History Household Members: Family Housing: House Are you a primary adult daycare coordinator to a significant other at home: No Do you presently have visiting nurse or other home services: No 75 years or older and lives alone: No Alcohol intake: never Comment: medicated prior to transfer to floor Patient Tobacco Use Status: Former Tobacco user Quit Date: 1986 service: No Current occupational status: employed Physical Exam Vital Signs: Last Vital Signs Temp 96.4 F L 10/11/23 10:10 Pulse 78 10/11/23 10:10 BP 119/64 10/11/23 10:10 Pulse Ox 78 L 10/11/23 10:10 Oxygen Delivery Method Room Air 10/11/23 10:10 BMI result Body Mass Index 33.7 Assessment & Plan Assessment & Plan (1) Obesity: Code(s): E66.9 - Obesity, unspecified (2) S/P laparoscopic sleeve gastrectomy: Code(s): Z98.84 - Bariatric surgery status Plan Pt is getting adequate protein meal plan but we discussed the things that she has added in (smoothies, cauliflower toast, DD swirl) do have extra calories. She also was not exercising for a time so we discussed the importance of that. Gave pt home video handout for exercise ideas and arturo recipe book. Labs were ordered last December and never drawn; pt will have done this week. RTC 3 months. Patient is obese and is not considered stable at this time. I spent a total of 30 minutes reviewing/updating records, examining the patient and counseling the patient on weight management as detailed above. Coding Level of Care Code Est Pt Level 4 (85493) Diagnoses Obesity E66.9 S/P laparoscopic sleeve gastrectomy Z98.84
[2023-10-11 10:10] VITALS: BP 119/64; PULSE 78; TEMP 35.8; O2SAT 78; BMI 33.7
== END 2023-10-11 10:49 | disposition home or self-care (01) ==
PROVIDERS: Visit Provider Physician Assistant Surgical
DX: E66.9 Obesity, unspecified (principal); Z68.33 Body mass index [BMI] 33.0-33.9, adult; Z90.3 Acquired absence of stomach [part of]; Z98.84 Bariatric surgery status
CPT/HCPCS: 99214

== ENCOUNTER → 2023-10-11 09:46 | Outpatient (BNVA) | payer OTHER, SELFPAY | PROVIDERS: Visit Provider Physician Assistant Surgical | DX: E66.9 Obesity, unspecified (principal); L65.9 Nonscarring hair loss, unspecified; Z68.33 Body mass index [BMI] 33.0-33.9, adult; Z90.3 Acquired absence of stomach [part of] | CPT/HCPCS: 99212 ==

== ENCOUNTER 2024-01-08 09:15 | Outpatient (AMB) | payer OTHER, SELFPAY ==
--- NOTE | 2024-01-08 09:09 | MHC.OFFVISWM ---
Intake Visit Reasons: (TELEPHONE) PO LSG 06/20/22 Allergies No Known Allergies Allergy (Verified 10/11/23 10:22) Medication List - Last Reconciled 01/08/24 by ASMITA Atkins atorvastatin 20 mg PO BEDTIME blood pressure monitor As directed blood sugar diagnostic As directed clotrimazole 1% 1 appl topical BID cyclosporine 0.05% (Restasis) 1 drp ophthalmic (eye) Q12H docusate sodium 100 mg PO BID dulaglutide (Trulicity) 1.5 mg subcut QWEEK empagliflozin (Jardiance) 10 mg PO DAILY flash glucose sensor As directed fluticasone propion-salmeterol 113-14 mcg/actuation 1 inh inhalation BID inulin (Fiber Gummies) 2 grams PO DAILY levocetirizine 5 mg PO DAILY losartan 25 mg PO DAILY pramipexole (Mirapex) 0.25 mg PO BEDTIME HPI Comments Details: This?is a?58?yo female who is s/p LSG 06/20/2022. Presents for 18 month post op visit. Weight gain +3.8lbs since last OV 3 months ago, reports the last time she weighed herself a few weeks ago she was 200lbs.? No complaints of nausea, emesis, abdominal pain or reflux. Has never had labs done postop. Pt reports I was going through some things , had some stress, divorce is finalized now. Had started snacking at night but has now gone back to shakes plus protein and vegetables. Stopped buying cofffee at [employer] after she noticed weight gain. Reports good blood sugar control. Continues to experience some hair loss. Present meal plan includes: has a Premier shake in AM with decaf coffee for lunch 1pm, sometimes will have low carb ramesh with eggs, spinach, mushrooms, or will have a yogurt with berries at night, chicken with salad drinks one protein water per day 20-30g protein every 3-4 hours as recommended by RD may snack on tangerines or oranges for dinner- meat and salad, or stir villagran taking Celebrate MVI Exercise routine includes: has been walking for exercise while visiting her daughter COUNT INCLUDES [facility] Medical History (Updated 06/26/23 @ 16:58 by Julianna Pastor) Hypotension Sleep apnea with use of continuous positive airway pressure (CPAP) Hypertension Non-insulin treated type 2 diabetes mellitus Pre-op evaluation BMI 45.0-49.9, adult Adjustment disorder, unspecified COVID-19 LIANA on CPAP Restless leg syndrome Asthma GERD (gastroesophageal reflux disease) Hypercholesterolemia Type 2 diabetes mellitus BMI greater than 40 Morbid obesity Surgical History Hx of colonoscopy H/O carpal tunnel repair H/O tubal ligation H/O hand surgery Family History Father No problems noted. Mother Diabetes mellitus Daughter No problems noted. Daughter No problems noted. Daughter ADHD Social History Household Members: Family Housing: House Are you a primary nurse care manager to a significant other at home: No Do you presently have visiting nurse or other home services: No 75 years or older and lives alone: No Alcohol intake: never Comment: medicated prior to transfer to floor Patient Tobacco Use Status: Former Tobacco user service: No Current occupational status: employed Telehealth Telehealth Telehealth Platform: Telephone Location of provider rendering services: practice address Location of patient: other Patient Identification confirmed using: Name, : Yes Telehealth method: voice only Patient verbally consented to treatment: Yes Patient verbally consented to billing insurance company: Yes Patient informed of any privacy concerns related to visit: Yes Assessment & Plan Assessment & Plan (1) Obesity: Code(s): E66.9 - Obesity, unspecified Category: Medical (2) S/P laparoscopic sleeve gastrectomy: Code(s): Z98.84 - Bariatric surgery status Category: Medical Plan Pt with protein goal 80g. She is doing better meeting this lately since refocusing on her meal plan and exercise. Recommend one Premier shake, one protein water, dinner meal of 6f protein/salad each and can have yogurt with berries or 2 eggs with veg in low carb wrap at lunch. Continue walking for exercise, recommended tracking calories. Pt needs to have labs done, has not had them done since immediately postop. RTC 3 months. I spent a total of 30 minutes reviewing/updating records, examining the patient and counseling the patient on weight management as detailed above. Orders: Orders Insulin Today E66.9 - Obesity, unspecified, Z98.84 - Bariatric surgery status C Reactive Protein Today E66.9 - Obesity, unspecified, Z98.84 - Bariatric surgery status Vitamin B1 Today E66.9 - Obesity, unspecified, Z98.84 - Bariatric surgery status Vitamin A Today E66.9 - Obesity, unspecified, Z98.84 - Bariatric surgery status Vitamin D 25-OH Total Today E66.9 - Obesity, unspecified, Z98.84 - Bariatric surgery status Hemoglobin A1c Today E66.9 - Obesity, unspecified, Z98.84 - Bariatric surgery status Complete Blood Count Auto Diff Today E66.9 - Obesity, unspecified, Z98.84 - Bariatric surgery status Lipid Panel Today E66.9 - Obesity, unspecified, Z98.84 - Bariatric surgery status IRON PROFILE Today E66.9 - Obesity, unspecified, Z98.84 - Bariatric surgery status Comprehensive Met. Panel Today E66.9 - Obesity, unspecified, Z98.84 - Bariatric surgery status Vitamin B12 and Folate Today E66.9 - Obesity, unspecified, Z98.84 - Bariatric surgery status Zinc Today E66.9 - Obesity, unspecified, Z98.84 - Bariatric surgery status TSH reflex Free T4 Today E66.9 - Obesity, unspecified, Z98.84 - Bariatric surgery status Ferritin Today E66.9 - Obesity, unspecified, Z98.84 - Bariatric surgery status
== END 2024-01-08 09:34 | disposition home or self-care (01) ==
LOC: HO.HBS 09:15
PROVIDERS: Visit Provider Physician Assistant Surgical
DX: E66.9 Obesity, unspecified (principal); Z68.33 Body mass index [BMI] 33.0-33.9, adult; Z90.3 Acquired absence of stomach [part of]; Z98.84 Bariatric surgery status
CPT/HCPCS: 99214; G2211

== ENCOUNTER → 2024-01-08 09:15 | Outpatient (BNVA) | payer OTHER, SELFPAY | PROVIDERS: Visit Provider Physician Assistant Surgical ==

== ENCOUNTER 2024-02-04 08:40 | Outpatient (REF) | payer OTHER, SELFPAY ==
[2024-02-04 09:00] LABS: MANUAL DIFF FLAG NO
[2024-02-04 09:29] LABS: Basophils Percent Auto 0.4 % (0-2); Eosinophils Absolute Auto 0.1 X10*3/uL (0.0-0.4); Eosinophils Percent Auto 2.1 % (0-4); Hematocrit 45.9 % (37.0-47.0); Hemoglobin 16.2 g/dl (12.0-16.0); Imm Gran Abs Auto 0.01 X10*3/uL (0.00-0.03); Imm Gran Pct Auto 0.2 % (0.0-0.4); Lymphocytes Absolute Auto 2.2 X10*3/uL (1.2-4.9); Lymphocytes Percent Auto 42.6 % (20-40); Mean Corpuscular HGB Conc 35.3 g/dl (31.0-35.0); Mean Corpuscular Hemoglobin 29.9 pg (27.0-33.0); Mean Corpuscular Volume 84.8 fL (80.0-98.0); Monocytes Absolute Auto 0.4 X10*3/uL (0.1-1.2); Monocytes Percent Auto 7.8 % (2-11); Neutrophils Absolute Auto 2.5 x10*3/uL (2.0-8.3); Neutrophils Percent Auto 46.9 % (45-73); Platelet Count 154 X10*3/uL (160-400); Red Blood Count 5.41 X10*6/uL (4.20-5.50); Red Cell Distribution Width 13.2 % (11.0-16.0); White Blood Count 5.3 X10*3/uL (4.8-10.8)
[2024-02-04 09:35] LABS: Estimated Average Glucose 128 mg/dL; Hemoglobin A1c % 6.1 % (<6.0)
[2024-02-04 10:00] LABS: Alanine Aminotransferase 11 U/L (0-31); Albumin Level 4.3 g/dL (3.5-5.0); Alkaline Phosphatase 55 U/L (39-117); Anion Gap 11 (12-20); Aspartate Amino Transferase 15 U/L (5-31); Bilirubin Total 0.8 mg/dL (0.0-1.0); Blood Urea Nitrogen 21 mg/dL (9-16); C Reactive Protein 0.13 mg/dL (< or = 0.50); Calcium 9.8 mg/dL (8.4-10.2); Carbon Dioxide 29 mmol/L (22-29); Chloride 110 mmol/L (96-108); Cholesterol 210 mg/dL (<200); Estimated Glomerular Filt Rate > 60; Glucose Random 113 mg/dL (60-115); HDL Cholesterol 72 mg/dL (>40); Iron 111 mcg/dL (30-160); LDL Cholesterol Calculated 121 mg/dL (<100); Percent Iron Saturation 38 % (15-50); Potassium 4.6 mmol/L (3.3-5.1); Sodium 145 mmol/L (135-145); Total Iron Binding Capacity 296 mcg/dL (228-428); Total Protein 7.5 g/dL (6.5-8.0); Triglycerides 89 mg/dL (<150); Unsaturated Iron Binding 185 ug/dL
[2024-02-04 10:40] LABS: Ferritin 107 ng/mL (10-250); Insulin 6 uU/mL (2-29); Vitamin D 25-OH Total 39.9 ng/mL (>30)
[2024-02-04 10:47] LABS: Folate 11.4 ng/mL (> or = 4.0); Vitamin B12 1110 pg/mL (200-900)
[2024-02-06 22:44] LABS: Zinc 86 mcg/dL (60-130)
[2024-02-08 18:34] LABS: Vitamin A 50 mcg/dL (38-98)
[2024-02-10 10:53] LABS: Vitamin B1 11 nmol/L (8-30)
== END 2024-02-04 08:41 | disposition home or self-care (01) ==
LOC: HO.LAB 08:40
PROVIDERS: PCP Internal Medicine; Visit Provider Physician Assistant Surgical
DX: E66.9 Obesity, unspecified (principal); Z98.84 Bariatric surgery status
CPT/HCPCS: 36415; 80053; 80061; 82306; 82607; 82728; 82746; 83036; 83525; 83540; 84425; 84443; 84590; 84630; 85025; 86140

== ENCOUNTER 2024-04-14 10:02 | Outpatient (AMB) | payer OTHER, SELFPAY ==
--- NOTE | 2024-04-14 10:12 | A.OFFVIS_ITS ---
VS Expanded 04/14/24 10:24 BP 126/69 Blood Pressure Location Rt brachial Blood Pressure Position Sitting Pulse 64 Pulse Source Pulse Oximeter Temp 98.1 F Temperature Source Temporal Artery Scan Pulse Oximetry 98 Oxygen Delivery Method Room Air Height 5 ft 4 in Weight 191 lb 6.4 oz BMI 32.9 Body Fat % 37.4 Body Fat Mass 71.6 Fat Free Mass 119.8 Visceral Fat Rating 10.0 Body Water % 44.4 Body Water Mass 84.8 Muscle Mass/Score 113.8 Basal Metabolic Rate/Score 1,626 Intake Visit Reasons: (OV) PO LSG 06/20/22 Allergies No Known Allergies Allergy (Verified 04/14/24 10:19) Medication List - Last Reconciled 04/14/24 by ASMITA Atkins atorvastatin 20 mg PO BEDTIME blood pressure monitor As directed blood sugar diagnostic As directed clotrimazole 1% 1 appl topical BID cyclosporine 0.05% (Restasis) 1 drp ophthalmic (eye) Q12H docusate sodium 100 mg PO BID dulaglutide (Trulicity) 1.5 mg subcut QWEEK empagliflozin (Jardiance) 10 mg PO DAILY flash glucose sensor As directed fluticasone propion-salmeterol 113-14 mcg/actuation 1 inh inhalation BID inulin (Fiber Gummies) 2 grams PO DAILY levocetirizine 5 mg PO DAILY losartan 25 mg PO DAILY pramipexole (Mirapex) 0.25 mg PO BEDTIME HPI Comments Details: This?is a?58?yo female who is s/p LSG 06/20/2022. Presents for 1 year 10 month post op visit. Weight at last visit on 01/08/2024 was 200 pounds, weight today is 191.4 pounds, representing a 8.6 pound weight loss with a BMI today of 32.9.? No complaints of nausea, emesis, abdominal pain or reflux, or constipation. [place]hrs[place]. Ate ribs yesterday from a restaurant, caused stomach upset. Present meal plan includes: Recommended at last visit- one Premier shake, one protein water, dinner meal of 6f protein/salad each and can have yogurt with berries or 2 eggs with veg at lunch this has been working well for her takes arturo MVI Exercise routine includes: walking [facility] Medical History (Updated 06/26/23 @ 16:58 by Julianna Pastor) Hypotension Sleep apnea with use of continuous positive airway pressure (CPAP) Hypertension Non-insulin treated type 2 diabetes mellitus Pre-op evaluation BMI 45.0-49.9, adult Adjustment disorder, unspecified COVID-19 LIANA on CPAP Restless leg syndrome Asthma GERD (gastroesophageal reflux disease) Hypercholesterolemia Type 2 diabetes mellitus BMI greater than 40 Morbid obesity Surgical History (Updated 04/14/24 @ 10:19 by Marlyn Doyle CMA) S/P laparoscopic sleeve gastrectomy Hx of colonoscopy H/O carpal tunnel repair H/O tubal ligation H/O hand surgery Family History Father No problems noted. Mother Diabetes mellitus Daughter No problems noted. Daughter No problems noted. Daughter ADHD Social History Household Members: Family Housing: House Are you a primary child care nurse to a significant other at home: No Do you presently have visiting nurse or other home services: No 75 years or older and lives alone: No Alcohol intake: never Comment: medicated prior to transfer to floor Patient Tobacco Use Status: Former Tobacco user service: No Current occupational status: employed Physical Exam Vital Signs: Last Vital Signs Temp 98.1 F 04/14/24 10:24 Pulse 64 04/14/24 10:24 BP 126/69 04/14/24 10:24 Pulse Ox 98 04/14/24 10:24 Oxygen Delivery Method Room Air 04/14/24 10:24 BMI result Body Mass Index 32.9 Assessment & Plan Assessment & Plan (1) Obesity: Code(s): E66.9 - Obesity, unspecified Category: Medical (2) S/P laparoscopic sleeve gastrectomy: Code(s): Z98.84 - Bariatric surgery status Category: Surgical Plan Gave pt recipe books for meal ideas. Doing well on current plan, getting adequate protein. Interested in skin removal surgery perhaps at an outside office, will focus on weight loss for now. RTC 3 months for 2 year visit. I spent a total of 30 minutes reviewing/updating records, examining the patient and counseling the patient on weight management as detailed above.
[2024-04-14 10:24] VITALS: BP 126/69; PULSE 64; TEMP 36.7; O2SAT 98; BMI 32.9
== END 2024-04-14 11:00 | disposition home or self-care (01) ==
PROVIDERS: Visit Provider Physician Assistant Surgical
DX: E66.9 Obesity, unspecified (principal); Z98.84 Bariatric surgery status; Z68.32 Body mass index [BMI] 32.0-32.9, adult
CPT/HCPCS: 99214; G2211

== ENCOUNTER → 2024-04-14 10:02 | Outpatient (BNVA) | payer OTHER, SELFPAY | PROVIDERS: Visit Provider Physician Assistant Surgical | DX: E66.9 Obesity, unspecified (principal); Z71.3 Dietary counseling and surveillance; Z98.84 Bariatric surgery status; Z68.32 Body mass index [BMI] 32.0-32.9, adult | CPT/HCPCS: 99212 ==

== ENCOUNTER 2024-07-21 10:21 | Outpatient (AMB) | payer OTHER, SELFPAY ==
--- NOTE | 2024-07-21 10:14 | MHC.OFFVISWM ---
VS Expanded 07/21/24 10:17 Height 5 ft 4 in Intake Visit Reasons: (Telephone) PO LSG 06/20/22 Allergies No Known Allergies Allergy (Verified 04/14/24 10:19) Medication List - Last Reconciled 07/21/24 by ASMITA Atkins atorvastatin 20 mg PO BEDTIME blood pressure monitor As directed blood sugar diagnostic As directed clotrimazole 1% 1 appl topical BID cyclosporine 0.05% (Restasis) 1 drp ophthalmic (eye) Q12H docusate sodium 100 mg PO BID dulaglutide (Trulicity) 1.5 mg subcut QWEEK empagliflozin (Jardiance) 10 mg PO DAILY flash glucose sensor As directed fluticasone propion-salmeterol 113-14 mcg/actuation 1 inh inhalation BID inulin (Fiber Gummies) 2 grams PO DAILY levocetirizine 5 mg PO DAILY losartan 25 mg PO DAILY pramipexole (Mirapex) 0.25 mg PO BEDTIME HPI Comments Details: This?is a?58?yo female who is s/p LSG 06/20/2022. Presents for 2 year post op visit. Weight at last visit on 04/14/2024 was 191.4 pounds, unsure of weight today since she had to change to a phone appt.? No complaints of nausea, emesis, abdominal pain or reflux, or constipation. Pt has COVID, prior to this was noticing a lot of bloating with eating. Trying to track what causes it. Happy because she is fitting into size large clothing now so she does think she lost weight. She does admit to occasional snacking, pork rinds or low sugar crackers or mini bagels or peanut butter. Tried to exchange those for [employer] chips. Present meal plan includes: Recommended at last visit- one Premier shake, one protein water, dinner meal of 6f protein/salad each and can have yogurt with berries or 2 eggs with veg at lunch this has been working well for her takes [facility] Exercise routine includes: walking joined a week before she got sick [facility] Medical History (Updated 06/26/23 @ 16:58 by Julianna Pastor) Hypotension Sleep apnea with use of continuous positive airway pressure (CPAP) Hypertension Non-insulin treated type 2 diabetes mellitus Pre-op evaluation BMI 45.0-49.9, adult Adjustment disorder, unspecified COVID-19 LIANA on CPAP Restless leg syndrome Asthma GERD (gastroesophageal reflux disease) Hypercholesterolemia Type 2 diabetes mellitus BMI greater than 40 Morbid obesity Surgical History (Updated 04/14/24 @ 10:19 by Marlyn Doyle CMA) S/P laparoscopic sleeve gastrectomy Hx of colonoscopy H/O carpal tunnel repair H/O tubal ligation H/O hand surgery Family History Father No problems noted. Mother Diabetes mellitus Daughter No problems noted. Daughter No problems noted. Daughter ADHD Social History Household Members: Family Housing: House Are you a primary patient care to a significant other at home: No Do you presently have visiting nurse or other home services: No 75 years or older and lives alone: No Alcohol intake: never Comment: medicated prior to transfer to floor Patient Tobacco Use Status: Former Tobacco user service: No Current occupational status: employed Telehealth Telehealth Telehealth Platform: Telephone Location of provider rendering services: practice address Location of patient: address on file Patient Identification confirmed using: Name, : Yes Telehealth method: voice only Patient verbally consented to treatment: Yes Patient verbally consented to billing insurance company: Yes Patient informed of any privacy concerns related to visit: Yes Minutes spent on Phone/Video with Pt.: 17 Assessment & Plan Assessment & Plan (1) Obesity: Code(s): E66.9 - Obesity, unspecified Category: Medical (2) S/P laparoscopic sleeve gastrectomy: Code(s): Z98.84 - Bariatric surgery status Category: Surgical Plan Pt overall doing well on plan, plans to increase exercise once she recovers from COVID. Gave goal of 2000 chrissy/week, if she goes 5x/week burn 400 chrissy/session. Discussed avoiding items like bread, bagels, crackers while she is working on weight loss. She will get a bariatric cookbook as she is interested in more recipes. Annual labs ordered. RTC 4 months. I encouraged pt to reach out between appts via text with any questions. I spent a total of 30 minutes reviewing/updating records, examining the patient and counseling the patient on weight management as detailed above. Orders: Orders Hemoglobin A1c Today Z98.84 - Bariatric surgery status IRON PROFILE Today Z98.84 - Bariatric surgery status Comprehensive Met. Panel Today Z98.84 - Bariatric surgery status Zinc Today Z98.84 - Bariatric surgery status C Reactive Protein Today Z98.84 - Bariatric surgery status Vitamin D 25-OH Total Today Z98.84 - Bariatric surgery status Insulin Today Z98.84 - Bariatric surgery status Complete Blood Count Auto Diff Today Z98.84 - Bariatric surgery status Lipid Panel Today Z98.84 - Bariatric surgery status Vitamin B12 and Folate Today Z98.84 - Bariatric surgery status Vitamin B1 Today Z98.84 - Bariatric surgery status Vitamin A Today Z98.84 - Bariatric surgery status TSH reflex Free T4 Today Z98.84 - Bariatric surgery status Ferritin Today Z98.84 - Bariatric surgery status
--- OUTSIDE RECORDS SUMMARY | 2024-07-21 15:00 | XMS_ITS | Continuity of Care Document ---
Author Organization [facility] Address [address] [place] [address]- Care Team Providers Care Civil Lawyer Name Role Phone Shefali Max MD Primary Care Physician Encounter [facility] Date(s): 07/19/24 - 07/19/[address] [address]- Discharge Disposition: A-D/C Home Attending Physician: Harpreet Mckay MD Admitting Physician: Harpreet Mckay MD Referring Physician: Not on Staff, Referring MD Encounter Type: Disch ES Allergies, Adverse Reactions, Alerts No Known Allergies Immunizations Given and Recorded Vaccine Date Status Refusal Reason tetanus/diphtheria/pertussis, acel(Tdap) 12/19/23 Given Medications acetaminophen 650 mg oral tablet 1 tablet = 650 mg, By Mouth, Every 8 hours, # 21 tablet, 0 Refills, Maintenance, 07/09/10 11:26:49 AM EST Start Date: 07/09/10 Stop Date: 07/16/10 Status: Ordered Quantity: 21.0 Unit: tablet Repeat number: 1 albuterol 0.083% inhalation solution 3 mL = 2.5 mg, Inhalation, Every 6 hours, PRN for wheezing, # 60 each, 0 Refills, Maintenance, 07/05/13 11:59:58 AM EST, Solution Start Date: 07/05/13 Status: Ordered Quantity: 60.0 Unit: each Repeat number: 1 albuterol CFC free 90 mcg/inh inhalation aerosol 2 puffs, Inhalation, Every 4 hours, PRN for wheezing, use with spacer chamber, may give up to 6 puffs at a time, # 18 Gm, 0 Refills, Maintenance, 07/05/13 11:59:49 AM EST, Aerosol Start Date: 07/05/13 Status: Ordered Quantity: 18.0 Unit: g Repeat number: 1 amoxicillin 500 mg oral tablet 1 tablet = 500 mg, By Mouth, 3 times a day, # 30 tablet, 0 Refills, Maintenance, 07/09/10 11:26:44 AM EST Start Date: 07/09/10 Stop Date: 07/19/10 Status: Ordered Quantity: 30.0 Unit: tablet Repeat number: 1 Breo Ellipta 100 mcg-25 mcg/inh inhalation powder 1 puffs, Inhalation, Daily, # 30 each, 0 Refills, Maintenance, 05/04/24 11:08:00 AM EST, Powder, Partial fill upon patient request if the prescription is for a schedule II opioid drug. Start Date: 05/04/24 Status: Ordered Quantity: 30.0 Unit: each Repeat number: 1 fluticasone-salmeterol 250 mcg-50 mcg inhalation powder 1 puffs, Inhalation, 2 times a day, # 60 each, 0 Refills, Maintenance, 07/05/13 12:04:29 PM EST, Powder Start Date: 07/05/13 Status: Ordered Quantity: 60.0 Unit: each Repeat number: 1 ibuprofen 600 mg oral tablet 1 tablet = 600 mg, By Mouth, 4 times a day, PRN Pain, # 40 tablet, 0 Refills, Maintenance, 07/09/10 11:26:53 AM EST Start Date: 07/09/10 Status: Ordered Quantity: 40.0 Unit: tablet Repeat number: 1 ibuprofen 800 mg oral tablet 1 tablet = 800 mg, By Mouth, 3 times a day, PRN Pain, # 30 tablet, 0 Refills, Soft Stop, 12/06/08 9:49:25 AM EDT Start Date: 12/06/08 Stop Date: 12/20/08 Status: Ordered Quantity: 30.0 Unit: tablet Repeat number: 1 Jardiance 10 mg oral tablet 1 tablet = 10 mg, By Mouth, Daily in AM, # 30 tablet, 0 Refills, Maintenance, 05/04/24 11:06:00 AM EST, Tablet, Partial fill upon patient request if the prescription is for a schedule II opioid drug. Start Date: 05/04/24 Status: Ordered Quantity: 30.0 Unit: tablet Repeat number: 1 losartan 25 mg oral tablet 25 mg, 1, tablet, By Mouth, Daily, # 30 tablet, Refills 0, Maintenance, 05/04/24 11:06:00 AM EST, Partial fill upon patient request if the prescription is for a schedule II opioid drug. Start Date: 05/04/24 Status: Ordered Quantity: 30.0 Unit: tablet Repeat number: 1 Paxlovid 150 mg-100 mg oral tablet See Instructions, Take 300 mg nirmatrelvir (two 150 mg tablets) and 100 mg ritonavir (one 100 mg tablet), taking all three tablets together, orally twice daily for 5 days, # 30 tablet, 0 Refills, Acute 07/25/24 3:05:00 AM EST, 07/19/24 3:05:00 AM EST, [facility]/pharmacy #[id number], Partial fill upon patient request if the prescription is for a schedule II opioid drug., Take 300 mg nirmatrelvir (two 150 mg tablets) and 100 mg ritonavir (one 100 mg tablet), taking all three tablets together, orally twice daily for 5 days, 163, cm, 07/19/24 2:07:00 EST, Height, 92.8, kg, 07/19/24 2:07:00 EST, Dry Weight Start Date: 07/19/24 Stop Date: 07/25/24 Status: Ordered Quantity: 30.0 Unit: tablet Repeat number: 1 predniSONE 50 mg oral tablet 1 tablet = 50 mg, By Mouth, Daily, # 5 tablet, 0 Refills, Acute 07/25/24 3:06:00 AM EST, 07/19/24 3:05:00 AM EST, Tablet, [facility]/pharmacy #[id number], Partial fill upon patient request if the prescription is for a schedule II opioid drug., 163, cm, 07/19/24 2:07:00 EST, Height, 92.8, kg, 07/19/24 2:07:00 EST,Dry Weight Start Date: 07/19/24 Stop Date: 07/25/24 Status: Ordered Quantity: 5.0 Unit: tablet Repeat number: 1 Trulicity Pen 1.5 mg/0.5 mL subcutaneous solution 0.5 mL = 1.5 mg, Subcutaneous Injection, Every week, rotate injection sites, # 2 mL, 0 Refills, Maintenance, 05/04/24 11:10:00 AM EST, Solution, Partial fill upon patient request if the prescription is for a schedule II opioid drug. Start Date: 05/04/24 Status: Ordered Quantity: 2.0 Unit: mL Repeat number: 1 Tylox 500 mg-5 mg oral capsule See Instructions, 1 capsule By Mouth Every 6 hours as needed for pain, # 12 capsule, 0 Refills, Soft Stop, 12/06/08 9:49:31 AM EDT Start Date: 12/06/08 Stop Date: 12/13/08 Status: Ordered Quantity: 12.0 Unit: capsule Repeat number: 1 Valium 5 mg oral tablet 1 tablet = 5 mg, By Mouth, 3 times a day, # 10 capsule, 0 Refills, Soft Stop, 12/06/08 9:49:27 AM EDT Start Date: 12/06/08 Stop Date: 12/13/08 Status: Ordered Quantity: 10.0 Unit: capsule Repeat number: 1 Problem List Condition Confirmation Course Effective Dates Status Health atus Informant COVID-19 1 Confirmed 07/19/24 Active Obese class I Confirmed Active 1Problem added by Discern Expert Results Radiology Reports * Exam Date Time Procedure Performing Provider Status 07/19/24 3:43 AM Chest Portable Beverley Hernandez; Auth (V erified) Notes: (Chest Portable) Reason For Exam: Shortness of Breath RESULT: Chest Portable Chest Portable Hx of Present Illness: SOB x 3 days, h o asthma. Used neb and inhaler @ home no relief. Also c o congestion, cough.; Reason: Shortness of Breath; Clinical Question(s): Other:; Pneumonia COMPARISON: None. FINDINGS: LINES AND TUBES: None. LUNGS AND PLEURA: Clear lungs. Normal pulmonary vascularity. No pleural effusion. No pneumothorax. HEART, MEDIASTINUM AND CHOLO: Heart is normal in size. Normal mediastinal and hilar contour. BONES AND SOFT TISSUES: No acute abnormality. IMPRESSION: No acute abnormality. WSN: [id number] Ordering Physician: Harpreet Mckay Dictated By: Enzo Hardy MD Dictated Date/Time: 07/19/24 7:22 am Reviewed By: Enzo Hardy MD Signed By: Enzo Hardy MD Signed Date/Time: 07/19/24 7:22 am Transcribed By: ALIVIA Transcribed Date/Time: 07/19/24 7:22 am Vital Signs Most recent to oldest [Reference Range]: 1 2 3 Height 163 cm (07/19/24 3:41 AM) 163 cm (07/19/24 2:07 AM) 163 cm (07/19/24 12:05 AM) Weight 92.8 kg (07/19/24 3:41 AM) 92.8 kg (07/19/24 2:07 AM) 92.8 kg (07/19/24 12:05 AM) Oxygen Saturation [94-100 %] 95 % (07/19/24 3:41 AM) 94 % (07/19/24 2:07 AM) 100 % (07/19/24 12:14 AM) Pulse Rate [55-90 bpm] 102 bpm *H* (07/19/24 3:41 AM) 79 bpm (07/19/24 2:07 AM) 77 bpm (07/19/24 12:14 AM) Body Mass Index [18.5-24.99 kg/m2] 34.93 kg/m2 *>HHI* (07/19/24 3:41 AM) 34.93 kg/m2 *>HHI* (07/19/24 2:07 AM) Blood Pressure [90-138/55-84 mm Hg] 120/85mm Hg (07/19/24 3:41 AM) 145/85mm Hg *H* (07/19/24 2:07 AM) 129/94mm Hg (07/19/24 12:14 AM) Respiratory Rate [16-30 br/min] 15 br/min *L* (07/19/24 3:41 AM) 16 br/min (07/19/24 2:07 AM) 20 br/min (07/19/24 12:14 AM) Temperature [96.8-100.4 DegF] 97.7 DegF (07/19/24 12:14 AM) Mode of Delivery (Oxygen) Room air (07/19/24 3:41 AM) Room air (07/19/24 2:07 AM) Room air (07/19/24 12:14 AM) Blood pressure sites Arm, left (07/19/24 3:41 AM) Arm, left (07/19/24 2:07 AM) Arm, left (07/19/24 12:14 AM) Temperature Route Oral (07/19/24 12:14 AM) Dry Weight 92.8 kg (07/19/24 3:41 AM) 92.8 kg (07/19/24 2:07 AM) 92.8 kg (07/19/24 12:05 AM) Weight Obtained Via Standing scale (07/19/24 12:05 AM) Social History Social History Type Response Smoking Status Never (less than 100 in lifetime) entered on: 12/19/23 Sex Sex Representation Female (finding) Note * Harpreet Mckay MD: PERFORM Event Display: Patient Education Leaflets Authored Date: [id number] COVID-19 Information for Families ?? 87 COVID-19 Information for Families Information from: www.cdc.gov/COVID19 ? What is coronavirus disease 2019 (COVID-19)? Coronavirus disease 2019 (COVID-19) is a respiratory illness that can spread from person to person.The virus that causes COVID-19 is a NEW coronavirus [facility]. ?? How does COVID-19 spread? The virus that causes COVID-19 probably emerged from an animal source, but is now spreading from person to person. The virus spreads mainly between people who are in close contact with one another (within 6 feet) through respiratory droplets produced when an infected person coughs or sneezes. It may be possible that a person can get COVID-19 by touching a surface or object that has the virus on it and then touching their own mouth, nose or eyes. ?? What are the symptoms? (*Most common in children) ??? Fever* ??? Runny nose ??? Aching muscles ??? Cough* ??? Sore throat ??? Congestion ??? A few can have vomiting & diarrhea ?? When should a symptomatic person seek medical care? When symptoms are getting worse ??? Breathing is more difficult ?? Call the doctor immediately if: ??? Breathing is labored ??? Tightness in chest ??? Bluish lips or face ??? New confusion or cannot arouse BEFORE seeking care, call your doctor and tell them you are Being evaluated for COVID-19. ?? What can I do to protect myself and my family from getting COVID-19? Avoid close contact with people who are sick ??? Avoid touching your eyes, nose and mouth with unwashed hands ??? Wash your hands often with soap and water for at least 20 seconds. Especially: - Before you eat, prepare food or feed your children - After diapering an or using the bathroom - Use an alcohol-based hand data engineer if soap and water are not available ?? For cleaning use: ? ? Soap & water For disinfection use: ??? Most common EPA-registered household disinfectants should be effective ??? Alcohol solutions with at least 70% alcohol ??? Diluted bleach: - 1 tsp bleach - 1 cup of water ?? What if someone I live with has symptoms? Symptomatic people should: ??? Stay home: - In an area apart from family and pets - With a separate bathroom if possible ??? Restrict activities outside your home except for medical care ??? Cover coughs or sneezes with a tissue or your elbow (discard tissue immediately) ??? Clean and disinfect frequently touched objects and surfaces every day ??? Avoid sharing personal household items: food, drink, dishes, utensils, towels, and bedding ? Is it okay for a mother with symptoms to breastfeed her infant? Breast milk is the best source of nutrition for most infants. However, much is unknown about COVID-19. Whether to start or continue should be determined by the mother in coordination with her healthcare provider. A mother with confirmed or symptoms of COVID-19 should take all possibleprecautions to avoid spreading the virus to her , including washing her hands before touchingthe infant and wearing a face mask, if possible, while feeding at the breast. If expressing breast milk with a manual or electric breast pump, the mother should wash her hands before touching any pump or bottle parts and follow recommendations for proper pump cleaning after each use. If possible, consider having someone who is well feed the expressed breast milk to the . ? * Harpreet Mckay MD: PERFORM Event Display: Patient Education Leaflets Authored Date: [id number] DIET COVID-19 Nutrition Instructions ?? 581 ? Nutrition Therapy COVID-19 ?? Nutrition is an important part of your COVID-19 treatment and recovery. Your nutritional needs are higher, and you may experience loss of appetite and weight loss. ?? Using Food to Fight Back Overall, the focus is to eat a well-balanced, high protein diet that includes whole grains and a variety of fruits, and vegetables. Eat the colors of the rainbow! ??? Eat 3 meals a day. Do not skip any meals. ??? Don ???t forget to include a protein food such aseggs, cheese, yogurt or peanut butter at breakfast. ??? Be sure to include meat, vegetable and starch at lunch and dinner. ??? Eat 2 snacks a day. Try fruit with cheese or peanut butter. ??? Keep high calorie, high protein snacks readily available. Some examples include protein/granola bars, [place] yogurt, or hardboiled eggs. ??? Add supplement drinks like Ensure or [place] Instant Breakfast if your appetite is poor. ?? Dealing with taste change or loss ??? Add more spices or seasonings to your food. ??? Try adding citrus to bring out brightness of flavors. ??? Fresh fruits and vegetables have stronger flavors than canned. ?? Dealing with a sore throat ??? Increase fluids? Try smoothies. ??? Avoid spicy or salty foods. ??? Avoid citrus or sour foods. ??? Choose soft moist foods. ???Add additional gravy or sauce to your food. ?? Too tired to cook or eat ??? Rest before sitting down to eat. ??? Try smoothies with added protein powder or peanut butter. ??? Try bulk cooking on days you feel stronger. ??? Try frozen meals. ??? Ask for help from friends and family ??? Try no-contact delivery ?? Don ???t forget about food safety! ??? Wash fruits and vegetables well? Cook meats thoroughly.? * Harpreet Mckay MD: PERFORM Event Display: Patient Education Leaflets Authored Date: [id number] Understanding Coronavirus Disease 2019 COVID-19 ?? 323 Understanding Coronavirus Disease 2019 (COVID-19) Coronavirus disease 2019 (COVID-19) is a respiratory illness. It's caused by a new (novel) coronavirus called SARS-CoV-2. There are many types of coronavirus. Coronaviruses are a very common cause ofbronchitis. They may sometimes cause lung infection (pneumonia). Symptoms can range from mild to severe respiratory illness. These viruses are also found in some animals. COVID-19 was first found in people in [facility], in late 2018. In 2020, several cases of COVID-19 have been confirmed in the [place] COVID-19 is a rapidly- emerging infectious disease. This means that scientists are actively researching it.??There are information updates regularly. Public health officials are working to find the source. How the virus spreads is not yet fully understood, but it seems to spread and infect people fairly easily. Some people who have been infected in an area may be unsure how or where they became infected. The virus may be spread through droplets of fluid that a person coughs or sneezes into the air. It may be spread if you touch a surface with virus on it, such as a handle or object, and then touch your eyes, nose, or mouth. For the latest information, visit the CDC website at www.cdc.gov/coronavirus/2019-ncov. Or call 130-WIO-CTSJ (199-973-9776). What are the symptoms of COVID-19? Some people have no symptoms or mild symptoms. Symptoms may appear 2 to 14 days after contact with the virus. Symptoms can include: ??? Fever ??? Coughing ??? Trouble breathing What are possible complications from COVID-19? In many cases, this virus can cause infection (pneumonia) in both lungs. In some cases, this can cause . Certain people are at higher risk for complications. This includes older adults and people with serious chronic health conditions such as heart or lung disease or diabetes. How is COVID-19 diagnosed? Your healthcare provider will ask about your symptoms. He or she will also ask about your recent travel and contact with sick people. If your healthcare provider thinks you may have COVID-19, he or she will work closely with your local health department on testing. Follow all instructions from yourhealthcare provider. COVID-19 is diagnosed by: ??? Nose and throat swab. A cotton-tipped swab is wiped inside your nose or throat. This is done tocheck for viruses in your nasal mucus. ??? Sputum culture. A small sample of mucus coughed from your lungs (sputum) is collected if you have a cough. It's checked for the virus. How is COVID-19 treated? There is currently no medicine to treat the virus. Treatment is done to help your body while it fights the virus. This is known as supportive care. Supportive care may include: ??? Pain medicine. These include acetaminophen and ibuprofen. They are used to help ease pain and reduce fever. ??? Bed rest. This helps your body fight the illness. For severe illness, you may need to stay in the hospital. Care during severe illness may include: ??? IV (intravenous) fluids. These are given through a vein to help keep your body hydrated. ??? Oxygen. Supplemental oxygen or ventilation with a breathing machine (ventilator) may be given. This isdone so you get enough oxygen in your body. Are you at risk for COVID-19? You are at risk for infection if you ???ve been to a place where people have been sick with this virus or if there are people with COVID-19 in your area. You are at risk if you: ??? Recently traveled to an area with a COVID-19 outbreak ??? Had contact with a sick person who recently traveled to an area with a COVID-19 outbreak ??? Had contact with a person who was diagnosed with or who may have COVID-19 ?? How can COVID-19 be prevented? There is no vaccine yet. The best prevention is to not have contact with the virus. The CDC advisesthat people should not travel to areas where there are COVID-19 outbreaks right now for any reason that is not urgent. For the most current CDC travel advisories, visit the CDC website at www.cdc.gov/ coronavirus/2019-ncov/travelers. ? To help prevent spreading the infection, wash your hands often, or use an alcohol-based hand data engineer. The CDC advises that you should not wear a facemask if you are not sick. Prepare and protect yourself from COVID-19: ??? Wash your hands often with soap and clean, running water for at least 20 seconds. ??? If you don't have access to soap and water, use an alcohol-based hand data engineer often. Make sure it has at least 60% alcohol. ??? Don't touch your eyes, nose, or mouth unless you have clean hands. ??? As much as possible, don't touch high-touch public surfaces such as doorknobs. Don't shake hands. ??? Clean home and work surfaces often with disinfectant. ??? Cough or sneeze into a tissue, then throw the tissue into the trash. If you don't have tissues, cough or sneeze into the bend of your elbow. ??? Stay informed about COVID-19 in your area. Follow local instructions about being in public. Be aware of events in your community that may be postponed or canceled such as school and sporting events. You may be advised not to attend public gatherings. You will be advised to stay about 6 feet from others as much as possible. This is called social distancing. ??? Check your home supplies. Consider keeping a 2-week supply of medicines, food, and other needed household items. ??? Make a plan for chil dcare, work, and ways to stay in touch with others. Know who will help you if you get sick. ??? Don't be around people who are sick. ??? There is no evidence right now that animals spread SARS-CoV-2.But it's always a good idea to wash your hands after touching any animals. Don't touch animals thatmay be sick. ??? Don ???t share eating or drinking utensils with sick people. ??? Don???t kiss someone who is sick. If you were in an area with COVID-19 in the last 14 days: ??? Call your healthcare provider and follow all instructions. Your activities and where you go maybe restricted for up to 2 weeks. ??? Take your temperature every morning and evening for at least 14 days. This is to check for fever. Keep a record of the readings. ??? Watch for symptoms of the virus. Call your provider if you have symptoms. Call your provider first before going to any clinic or hospital. ??? Stay home if you are sick for any reason. If you are sick with COVID-19 symptoms: ??? Stay home. Call your healthcare provider and tell them you have symptoms of COVID-19. Do this before going to any hospital or clinic. Follow your provider's instructions. You may be advised to isolate yourself at home. This is called self-isolation or self-quarantine. ??? Don ???t panic. Keep in mind that other illnesses can cause similar symptoms. ??? Stay away from work, school, and public places. Limit physical contact with family members. Limit visitors. Don't kiss anyone or share eating or drinking utensils. Clean surfaces you touch with disinfectant. This is to help prevent the virus from spreading. ??? Cough or sneeze into a tissue, then throw away the tissue in the trash. If youdon't have tissues, cough or sneeze into the bend of your elbow. ??? Wear a facemask only if you have symptoms ??? If you need to go in to a hospital or clinic, expect that the healthcare staff will wear protective equipment such as masks, gowns, gloves, and eye protection. You may be put in a separate room. This is to prevent the possible virus from spreading. ??? Tell the healthcare staff about recent travel. This includes local travel on public transport. Staff may need to find other people you have been in contact with. ??? Follow all instructions the healthcare staff give you. If you have been diagnosed with COVID-19 ??? Stay home. Don ???t leave your home unless you need to get medical care. Don't go to work, school, or public areas. Don't use public transportation or taxis. ??? Follow all instructions from yourhealthcare provider. Call your healthcare provider???s office before going. They can prepare and give you instructions. This will help prevent the virus from spreading. ??? If you need to go to a hospital or clinic, expect that the healthcare staff will wear protective equipment such as masks, gowns, gloves, and eye protection. You may be put in a separate room. This is to prevent the possible virus from spreading. ??? Wear a face mask. This is to protect other people from your germs. If you are not able to wear a mask, your caregivers should. ??? Stay away from other people in your home. ???Limit contact with pets and animals. Although there are no reports of pets getting sick with COVID-19, consider limiting contact with pets until more is known. ??? Don???t share household items or food. ??? Cover your face with a tissue when you cough or sneeze. Throw the tissue away. Then wash your hands. ??? Wash your hands often. If you are caring for a sick person: ??? Follow all instructions from healthcare staff. ??? Wash your hands often. ??? Wear protective clothing as advised. ??? Make sure the sick person wears a mask. If they can't wear a mask, don't stay in the same room with the person. If you must be in the same room, wear a facemask. ??? Keep trackof the sick person???s symptoms. ??? Clean surfaces, fabrics, and laundry thoroughly. ??? Keep other people and pets away from the sick person. When to call your healthcare provider Call your healthcare provider: ??? If you ???ve recently traveled or have been in an area with COVID-19 and have symptoms ??? If you have been diagnosed with COVID-19 and your symptoms are worse ? [id number] [employer]. [address] [place] [address], [place] [address]. All rights reserved. This information is not intended as a substitute for professional medical care. Always follow your healthcare professional's instructions. ?? Patient Care team information Care Team Personnel Name: Shefali Max MD Position: Reference Physician Member Role: PCP Address: [address] [place] [address] Telecom: Care Team Related Persons Name: QUYEN SYED Insurance Providers Guarantor name: [employer] Plan Information #: 1 Payer: [employer] Member Number: [id number] Policy Number: ZACK Group Number: [facility] Team [facility] Information #: 2 Payer: [employer] Member Number: [id number] Policy Number: [employer]ACK Group Number: NA
--- OUTSIDE RECORDS SUMMARY | 2024-07-21 15:00 | XMS_ITS | Encounter Summary ---
Author Organization [facility] [place] [address] Care Team Providers Care Filter Assembler Name Role Phone Shefali Max MD Primary Care Provider [phone] Encounter Details Date Type Department Care Team (Late Contact Info) Description 03/05/2024 10:03 AM EDT Hospital Encounter TH HISTORIC ENCOUNTERS EASTERN CONVERSION ONLY Mehrdad Hardy MD [address] [place] [id number] Social History Tobacco Use Types Packs/Day Years Used Date Smoking Tobacco: Former Smokeless Tobacco: Never Alcohol Use Standard Drinks/Week Comments No 0 (1 standard drink = 0.6 oz pur e alcohol) Sex and Gender Information Value Date Recorded Sex Assigned at Not on file Gender Identity Not on file Sexual Orientation Not on file Job Start Date Occupation Industry Not on file Not on file Not on file documented as of this encounter Plan of Treatment Upcoming Encounters Date Type Department Care Team (Late Contact Info) Description 09/04/2024 2:30 PM EDT Office Visit Endocrinology - [address] [phone] Rukhsana Monzon PA [address] [place] [address] 09/17/2024 10:45 AM EDT Office Visit Orthopedic Surgery - [place] [address] [facility] [address] [place] [address] Oscar Mercedes DPPreet [address] [address] 11/14/2024 10:45 AM EDT Office Visit Pulmonolgy - [place] [address] [facility] [address] [place] [address] Lavonne Arreola MD [address] [address] 02/21/2025 9:00 AM EDT Appointment Radiology Department [address] [address] documented as of this encounter Goals Goal Patient Goal Type Associated Problems Recent Progress Patient-Stated? Author LTG - 8 visits General No Magalis Zelaya, TERESA Note: Patient reports subjective decrease in neck and shoulder pain Patient is able to achieve 30 degrees of cervical side bending bilaterally Slight trigger point to bilateral levator scap Slight trigger point to bilateral scalenes Patient is able to achieve 4+/5 deep cervical neck flexor strength Patient is independent and compliant with HEP documented as of this encounter Visit Diagnoses Not on filedocumented in this encounter Care Teams Filter Assembler Relationship Specialty Start Date End Date Shefali Max MD [address] [place] [address] PCP - General Internal Medicine 02/06/22 documented as of this encounter
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
== END 2024-07-21 10:32 | disposition home or self-care (01) ==
LOC: HO.HBS 10:21
PROVIDERS: Visit Provider Physician Assistant Surgical
DX: E66.9 Obesity, unspecified (principal); Z98.84 Bariatric surgery status
CPT/HCPCS: 99214; G2211